=== PATIENT | female | born 1935 | race African-American/Black ===

== ENCOUNTER → 2017-02-10 12:39 | Emergency (ER) | payer MEDICARE ==
[~2017-02-10 12:39] MED LIST: Acetaminophen TAB* 325 MG PO ONE; HYDROcodone/ACETAMIN 5-325 MG* 1 TAB PO ONE; Lidocaine PATCH 5%* 1 PATCH TRANSDERM ONE; Lidocaine Patch REMOVE* 1 NOTE MISC PATCH OFF SCH; Morphine INJ* 2 MG/ML 1 ML CARPUJECT IV ONE; Morphine INJ* 4 MG/ML 1 ML CARPUJECT ONE; Ondansetron INJ* 2 MG/ML VIAL IV ONE
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
[2017-02-10 14:07] LABS: Hematocrit 36 % (35-47); Hemoglobin 11.6 g/dl (12.0-16.0); Mean Corpuscular HGB Conc 32 g/dl (31-36); Mean Corpuscular Hemoglobin 26 pg (27-31); Mean Corpuscular Volume 79 fL (80-97); Mean Platelet Volume 9 um3 (7.4-10.4); Red Blood Count 4.51 10^6/ul (4.0-5.4); Red Cell Distribution Width 15 % (10.5-15); White Blood Count 7.1 10^3/ul (3.5-10.8)
[2017-02-10 14:23] LABS: ALT 7 U/L (7-52); AST 16 U/L (13-39); Albumin 3.4 g/dL (3.2-5.2); Alkaline Phosphatase 29 U/L (34-104); Anion Gap 1 mmol/L (2-11); BUN/Creatinine Ratio 11.9 (8-20); Blood Urea Nitrogen 10 mg/dL (6-24); C Reactive Protein < 1.00 mg/L (< 5.00); CO2 Carbon Dioxide 31 mmol/L (22-32); Calcium 9.1 mg/dL (8.6-10.3); Chloride 107 mmol/L (101-111); EGFR African American 83.7 (>60); EGFR Non-African American 65.1 (>60); Globulin 2.9 g/dL (2-4); Glucose 87 mg/dL (70-100); Magnesium 2.2 mg/dL (1.9-2.7); Sodium 139 mmol/L (133-145); Total Protein 6.3 g/dL (6.4-8.9)
[2017-02-10 14:43] LABS: Amylase 69 U/L (29-103); Lipase 20 U/L (11.0-82.0)
[2017-02-10 16:32] LABS: Urine Bacteria Absent (Absent)
[2017-02-10 16:41] LABS: Urine Bilirubin Negative (Negative); Urine Glucose Negative (Negative); Urine Nitrite Negative (Negative)
[2017-02-10 22:22] VITALS: BP 158/50
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
== END | disposition home or self-care (01) ==
LOC: ED 12:39
DX: M54.5 Low back pain (principal); R00.1 Bradycardia, unspecified; G30.9 Alzheimer's disease, unspecified; F02.80 Dementia in other diseases classified elsewhere, unspecified severity, without behavioral disturbance, psychotic disturbance, mood disturbance, and anxiety; F05 Delirium due to known physiological condition
CPT/HCPCS: 36415; 80053; 81003; 81015; 82150; 83605; 83690; 83735; 85025; 86140; 87086; 93005; 96374; 96375; 99283; A9270-GY; J2270; J2405

== ENCOUNTER 2017-10-01 06:03 | Day surgery (SDC) | payer MEDICARE, MEDICAID ==
[~2017-10-01 06:03] MED LIST changes: -Acetaminophen TAB* 325 MG PO ONE; +Buffered Lidocaine 0.9% SYRIN* 5 ML/SYR SYRINGE INTRADERM ONE; -HYDROcodone/ACETAMIN 5-325 MG* 1 TAB PO ONE; -Lidocaine PATCH 5%* 1 PATCH TRANSDERM ONE; -Lidocaine Patch REMOVE* 1 NOTE MISC PATCH OFF SCH; -Morphine INJ* 2 MG/ML 1 ML CARPUJECT IV ONE; -Morphine INJ* 4 MG/ML 1 ML CARPUJECT ONE; -Ondansetron INJ* 2 MG/ML VIAL IV ONE
[2017-10-01 06:25] VITALS: BP 172/60
[2017-10-01] MEDS ORDERED: Atracurium* 10 MG/ML 10 ML VIAL ONE (06:25)
[2017-10-01] MEDS ORDERED: Rocuronium* 10 MG/ML VIAL ONE (06:25)
[2017-10-01] MEDS ORDERED: Succinylcholine* 20 MG/ML 10 ML VIAL ONE (06:31)
[2017-10-01] MEDS ORDERED: Gadoteridol* (CONTRAST) 279.3 MG/ML 10 ML IV ONE (06:31)
[2017-10-01] MEDS ORDERED: Naloxone* 0.4 MG/ML 1 ML VIAL IV PRN (08:35)
--- NOTE | 2017-10-01 09:10 | RAD ---
INDICATION: Pituitary adenoma. COMPARISON: Comparison is made with a prior MRI of the brain from December 04, [address] of the brain from March 01, 2015. TECHNIQUE: Sagittal T1, axial T1, T2, susceptibility, FLAIR and diffusion-weighted images were obtained. In addition a dynamic contrast enhanced study of the pituitary gland was obtained in the coronal plane with additional axial sagittal and coronal weighted images following intravenous contrast enhancement with 15 mL of ProHance nonionic contrast. FINDINGS: The ventricles, cisterns and sulci are prominent consistent with diffuse atrophy. There are focal areas of increased signal intensity on T2-weighted images present in the subcortical and periventricular white matter most consistent with moderate chronic small vessel ischemic changes. No areas of restricted diffusion are present. There is no evidence for infarct or hemorrhage. There is a large mass arising from the pituitary gland extending into the superior sellar cistern which is lobulated margins and enhances with contrast uniformly with contrast. This measures 3.3 x 2.6 x 1.7 cm in size and previously measured 2.5 x 2.5 x 1.7 cm in size. There is more superior extension of the mass into the suprasellar cistern on the right side compared with the prior study. There is compression and elevation of the optic chiasm as previously noted. There is invasion of both cavernous sinuses which appears similar to the prior exam right greater than left. The paranasal sinuses and mastoid air cells appear clear. 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
== END 2017-10-01 09:13 | disposition home or self-care (01) ==
LOC: OR 06:03
PROVIDERS: ATTEND Internal Medicine
DX: D35.2 Benign neoplasm of pituitary gland (principal); I10 Essential (primary) hypertension; E78.5 Hyperlipidemia, unspecified; I25.10 Atherosclerotic heart disease of native coronary artery without angina pectoris; E11.8 Type 2 diabetes mellitus with unspecified complications; G40.909 Epilepsy, unspecified, not intractable, without status epilepticus; R55 Syncope and collapse; I25.9 Chronic ischemic heart disease, unspecified; M79.1 Myalgia; R00.1 Bradycardia, unspecified; F03.91 Unspecified dementia, unspecified severity, with behavioral disturbance
CPT/HCPCS: 70553; A9579; J0330

== ENCOUNTER 2017-12-06 20:55 | Inpatient (IN) | payer MEDICARE, MEDICAID ==
[2017-12-06] MEDS ORDERED: NS 0.9% 1000 ML* 2,000 ML IV ONE (21:14)
[2017-12-06] MEDS ORDERED: Piperacillin/Tazobac ADVAN(*) 3.375 GM in NS 0.9% 100 ML* 100 ML IVPB ONE (21:19)
[2017-12-06] MEDS ORDERED: Morphine VIAL* 4 MG/ML VIAL (1 ml vial) IV ONE (21:19)
--- NOTE | 2017-12-06 21:32 | ED ---
Abdominal Pain/Female - HPI Summary HPI Summary: This is antonio Sousa documenting for attending physician Dev Kathleen M.D. Pt is a 82 y/o F brought in by EMS. She is a level 5 caveat as she has demetia, and HPI is gathered from granddaughter who was present. Pt was brought in today w/ c/o abdominal pain, black, tarry, and bloody diarrhea, HTN, and tachycardia. Pain onset was 2 days ago, diarrhea onset was 3 days ago. Granddaughter states Pt did not eat or drink much today or yesterday. She also notes Pt was tired and did not want to walk far. Pt states abdominal pain is in LLQ and pain is rated 4/10 on triage. - History of Current Complaint Chief Complaint: EDAbdPain Stated Complaint: ABD PAIN/BLOODY STOOL Time Seen by Provider: 12/06/17 21:03 Hx Obtained From: Patient - partially gathered but unreliable, Family/Animal Health Technician - granddaughter Hx From Patient Unobtainable Due To: Dementia - level 5 caveat Onset/Duration: Lasting Days - abdominal pain 2 days ago; diarrhea 3 days ago, Still Present Timing: Constant Severity Currently: Mild Pain Intensity: 4 Pain Scale Used: 0-10 Numeric - 4/10 Location: Discrete At: LLQ Radiates: No Associated Signs and Symptoms: Positive: Blood in Stool, Diarrhea - stool is described as black and tarry, Other: - fatigue, HTN, tachycardia Allergies/Adverse Reactions: Allergies Allergy/AdvReac Type Severity Reaction Status Date / Time metformin Allergy Mild Nausea And Verified 10/01/17 06:01 Vomiting propoxyphene [From Darvon] Allergy Unknown Unknown Verified 10/01/17 06:01 Reaction Details ramipril [From Altace] Allergy Unknown Unknown Verified 10/01/17 06:01 Reaction Details Home Medications: Home Medications Acetaminophen TAB* [Tylenol TAB*] 650 mg PO TID PRN 12/06/17 [History Confirmed 12/06/17] Aspirin EC TAB* [Ecotrin EC Low Dose 81 MG*] 81 mg PO DAILY 12/06/17 [History Confirmed 12/06/17] Atorvastatin* [Lipitor*] 10 mg PO EVERY OTHER DAY 12/06/17 [History Confirmed ] Bromocriptine TAB* [Parlodel TAB*] 2.5 mg PO BEDTIME 12/06/17 [History Confirmed 12/06/17] Calcium Carbonate/Vitamin D3 [Calcium Carbonate/Vitamin] 1 tab PO DAILY [History Confirmed 12/06/17] Clopidogrel TAB* [Plavix TAB*] 75 mg PO DAILY 12/06/17 [History Confirmed ] Donepezil TAB* [Aricept 5 MG TAB*] 10 mg PO DAILY 12/06/17 [History Confirmed ] Ferrous Sulfate TAB* 325 mg PO DAILY 12/06/17 [History Confirmed 12/06/17] HYDROcodone/ACETAMIN 5-325 MG* [[place] 5-325 TAB*] 0.5 tab PO Q6H PRN MDD 2 tablets 12/06/17 [History Confirmed 12/06/17] Levothyroxine TAB* [Synthroid TAB*] 50 mcg PO QAM 12/06/17 [History Confirmed ] Lidocaine [Aspercreme Lidocaine Max] 4 % EX DAILY 12/06/17 [History Confirmed ] Loperamide CAP* [Imodium CAP*] 2 mg PO Q4H PRN 12/06/17 [History Confirmed 12/06] Magnesium Oxide TAB* [MagOx 400 TAB*] 400 mg PO DAILY 12/06/17 [History Confirmed 12/06/17] Meclizine TAB* [Antivert 12.5 TAB*] 12.5 mg PO Q6H PRN 12/06/17 [History Confirmed 12/06/17] Saline NASAL SPRAY 0.65%* [Sodium Chloride 0.65% Nasal [place]*] 1 spray BOTH NARES Q2H PRN 12/06/17 [History Confirmed 12/06/17] PMH/Surg Hx/FS Hx/Imm Hx Endocrine/Hematology History: Reports: Hx Diabetes Cardiovascular History: Reports: Hx Coronary Artery Disease - Cardiac stent 2008 , Hx Hypertension, Hx Myocardial Infarction - plavix, ASA, statin, beta fior but latter was stopped 02/01/2017, Other Cardiovascular Problems/Disorders - 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, IN Denies: Hx Angina, Hx Pacemaker/ICD Respiratory History: Denies: Hx Asthma, Hx Chronic Obstructive Pulmonary Disease (COPD), Other Respiratory Problems/Disorders GI History: Reports: Hx Diverticulosis, Other GI Disorders - constipation, hernia repair History: Reports: Other Problems/Disorders - incontinence at times, Hx of UTI Denies: Hx Renal Disease Musculoskeletal History: Reports: Hx Arthritis - Arthritis in spine, Hx Back Problems - Lumbar DDD, Lt hip OA + subchondral cyst - takes meloxicam, Other Musculoskeletal History - Osteopenia Sensory History: Reports: Hx Contacts or Glasses, Hx Hearing Problem Denies: Hx Hearing Aid Opthamlomology History: Reports: Hx Contacts or Glasses Neurological History: Reports: Hx Dementia - Alzheimer's, Hx Peripheral Neuropathy - ???, Other Neuro Impairments/Disorders - Pituitary gland adenoma, Alzheimer's Disease,Dementia Denies: Hx Seizures Psychiatric History: Reports: Hx Anxiety, Hx Depression Denies: Hx Panic Disorder - Cancer History Cancer Type, Location and Year: pituitary tumor Hx Chemotherapy: No Hx Radiation Therapy: No - Surgical History Surgery Procedure, Year, and Place: colon resection 2007,hysterectomy 40 years ago ,r/t benign tumors,hernia repair 2008 Hx Anesthesia Reactions: No - Immunization History Date of Tetanus Vaccine: unknown Date of Influenza Vaccine: 2011 Infectious Disease History: No Infectious Disease History: Denies: Traveled Outside the [place] in Last 30 Days - Family History Known Family History: Positive: None, Diabetes - Social History Alcohol Use: None Hx Substance Use: No Substance Use Type: Reports: None Hx Tobacco Use: No Smoking Status (MU): Never Smoked Tobacco Review of Systems Positive: Fatigue - "did not want to walk far" Positive: Other - HTN, tachycardia Positive: Abdominal Pain - LLQ, Diarrhea - black, tarry stool, Other - blood in stool All Other Systems Reviewed And Are Negative: Yes Physical Exam - Summary Physical Exam Summary: Appearance: Well-appearing, Well-nourished, lying in bed comfortably Skin: Warm, dry, no obvious rash Eyes: sclera anicteric, no conjunctival pallor ENT: mucous membranes moist, pharynx appears normal Neck: Supple, nontender Respiratory: Clear to auscultation, no signs of respiratory distress Cardiovascular: Normal S1, S2. No murmurs. Normal distal pulses in tibial and radial bilaterally. Abdomen: LLQ quadrant tenderness and guarding, normal active bowel sounds present Musculoskeletal: Normal, Strength/ROM Intact Neurological: A&Ox3, awake and alert, mentation is normal, speech is fluent and appropriate Psychiatric: affect is normal, does not appear anxious or depressed Triage Information Reviewed: Yes Vital Signs On Initial Exam: Initial Vitals Temp Pulse Resp BP Pulse Ox 96.6 F 91 17 173/86 98 12/06/17 21:03 12/06/17 21:03 12/06/17 21:03 12/06/17 21:03 12/06/17 21:03 Vital Signs Reviewed: Yes Diagnostics - Vital Signs Vital Signs Temp Pulse Resp BP Pulse Ox 12/06/17 21:03 96.6 F 91 17 173/86 98 - Laboratory Result Diagrams: 12/09/17 05:17 12/09/17 05:17 Lab Statement: Any lab studies that have been ordered have been reviewed, and results considered in the medical decision making process. - CT CT abd/pel CT Interpretation: Positive (See Comments) CT Interpretation Completed By: Radiologist - Small bowel obstruction involving the proximal and mid small bowel. Transition zone is in the pelvis. No small bowel wall thickening or pneumatosis. Short transition zone. This is adjacent to an anterior abdominal wall repair with a mesh graft. Partial colectomy with distention of the rectum filled with fluid. No rectal wall thickening. Cholelithiasis. Cardiomegaly. Pericardial effusion located in the posterior aspect of the heart meausring 1.4 cm in width. This report was reviewed by ED physician. Re-Evaluation - Re-Evaluation First Eval Re-Evaluation Time: 22:00 Comment: Discussed tests and care of patient Second Eval Re-Evaluation Time: 00:30 Comment: Pt and granddaughter informed of admission of Pt Abdominal Pain Fem Course/Dx - Diagnoses Differential Diagnosis: Positive: Bowel Obstruction, Irritable Bowel Syndrome, Urinary Tract Infection. Negative: Abdominal Aortic Aneurysm, ACS Provider Diagnoses: Small bowel obstruction due to adhesions - Provider Notifications Discussed Care Of Patient With: Sharri Olguin Time Discussed With Above Provider: 00:25 Instructed by Provider To: Other - Dr. Olguin accepts for admission Discharge - Sign-Out/Discharge Documenting (check all that apply): Patient Departure - Discharge Plan Condition: Guarded Disposition: ADMITTED TO ORIENTAL MEDICAL - Billing Disposition and Condition Condition: GUARDED Disposition: Admitted to [facility]
[2017-12-06 21:59] LABS: ABS Basophils 0 10^3/ul (0-0.2); ABS Eosinophils 0 10^3/ul (0-0.6); ABS Monocytes 0.7 10^3/ul (0-0.8); ABS Neutrophils 7.6 10^3/ul (1.5-7.7); ABS Nucleated RBC 0 10^3/ul; Eosinophil % 0.2 % (0-6); Hematocrit 40 % (35-47); Hemoglobin 13.3 g/dl (12.0-16.0); Lymphocyte % 10.6 % (25-47); Mean Corpuscular HGB Conc 33 g/dl (31-36); Mean Corpuscular Hemoglobin 25 pg (27-31); Mean Corpuscular Volume 77 fL (80-97); Mean Platelet Volume 9.1 um3 (7.4-10.4); Nucleated Red Blood Cells % 0; Platelet Count 288 10^3/ul (150-450); Red Blood Count 5.29 10^6/ul (4.00-5.40); Red Cell Distribution Width 14 % (10.5-15); White Blood Count 9.3 10^3/ul (3.5-10.8)
[2017-12-06 22:05] LABS: EGFR Non-African American 59.9 (>60)
[2017-12-06] MEDS ORDERED: Iodixanol* (CONTRAST) 320 MG/ML 100 ML SDV IV ONE (22:11)
[2017-12-07] MEDS ORDERED: Benzocaine/Butamben/Tetracain* SPRAY TOPICAL ONE (00:52)
[2017-12-07] MEDS ORDERED: Al Hydrox/Mg Hydrox/Simet LIQ* 30 ML UDC PO PRN (01:39)
[2017-12-07] MEDS ORDERED: Ondansetron INJ* 2 MG/ML VIAL IV PRN (01:39)
[2017-12-07] MEDS ORDERED: Saline NASAL SPRAY 0.65%* BTL BOTH NARES PRN (01:42)
[2017-12-07] MEDS ORDERED: PROCHLORPERAZINE INJ 5 MG/ML 2 ML VIAL IV PRN (01:57)
--- NOTE | 2017-12-07 04:40 | HP ---
CC: [facility] HISTORY AND PHYSICAL: DATE OF ADMISSION: 12/07/17 TIME OF EVALUATION: 0100. PRIMARY CARE PHYSICIAN: [facility]. CHIEF COMPLAINT: Abdominal pain. HISTORY OF PRESENT ILLNESS: This is an 82-year-old female with a past medical history of moderate to severe dementia, who presented to the emergency room from [facility] with abdominal pain and bloody stools. The patient has moderate to severe dementia and is unable to provide a history. Her daughter is at the bedside, who states she started complaining of abdominal pain 2 days ago. This evening when they were changing her, they noted black stools, which they felt attributed to iron, but they also maroon-colored stools as well. In the setting of her abdominal pain and now bloody stools, they sent her to the emergency room for further evaluation. The daughter states she has had poor appetite over the past several days and her weight has been down 8 pounds over the past 2 months. In the emergency room, she began nausea and vomiting and, as mentioned, the abdominal pain is going on for the past 2 days. Otherwise, review of systems is limited due to the patient's dementia. In the emergency room, the patient had labs and imaging, was found to have a bowel obstruction. She had an NG tube placed. She was given Zosyn, a liter of fluid, morphine, and referred to the hospitalist service for further evaluation. PAST MEDICAL HISTORY: 1. Dementia, moderate to severe. She can recognize her granddaughter, but she is unable to express her needs. She is incontinent, but still ambulatory. 2. Diabetes. 3. History of coronary artery disease, status post IN and a stent. 4. Hypertension. 5. Hyperlipidemia. 6. History of diverticulosis, diverticulitis, status post partial colectomy. 7. Chronic low back pain. 8. Arthritis. 9. History of ventral hernia repair with mesh. 10. Pituitary mass. MEDICATIONS: 1. Loperamide as needed for constipation. 2. Tylenol for pain. 3. Meclizine 12.5 mg every 6 hours as needed for vertigo. 4. Nasal spray as needed for congestion. 5. Atorvastatin 10 mg p.o. daily. 6. Synthroid 50 mcg p.o. daily. 7. Ferrous sulfate 325 mg p.o. daily. 8. Aspercreme with lidocaine patch apply topically in the morning for chronic pain daily. 9. Plavix 75 mg p.o. daily. 10. Bromocriptine 2.5 mg at bedtime for pituitary tumor. 11. Hydrocodone/acetaminophen 5/325 mg 0.5 mg every 6 hours as needed for pain. 12. Aspirin 81 mg p.o. daily. 13. Magnesium oxide 400 mg p.o. daily. 14. Calcium and vitamin D3 one tab daily. 15. Aricept 10 mg p.o. daily. ALLERGIES: METFORMIN, PROPOXYPHENE, and RAMIPRIL. FAMILY HISTORY: Reviewed and noncontributory. SOCIAL HISTORY: The patient is . She has been at [facility] since February 2017. No history of tobacco, alcohol or illicit drug use. Her healthcare proxy is her daughter, Shivani Koch. REVIEW OF SYSTEMS: Limited due to the patient's dementia. PHYSICAL EXAMINATION GENERAL: No acute distress. Resting comfortably with her granddaughter at the bedside. VITAL SIGNS: Temp is 96.6, pulse rate 84, respiratory rate 19, oxygen saturation 99% on room air, blood pressure 168/72. HEENT: Head, normocephalic. Pupils equal and reactive. Oropharynx: Mucous membranes are moist. NECK: Supple, no lymphadenopathy. RESPIRATORY: Diminished breath sounds. No wheezes, rhonchi or rales. CARDIAC: Regular rate and rhythm. Soft systolic murmur heard throughout. ABDOMEN: Distant hypoactive bowel sounds. Moderate distention. Diffusely tender with guarding present. EXTREMITIES: Trace pretibial edema. +1 DPs. NEUROLOGIC: No gross focal neurologic deficits. Alert and oriented x2. Knows her name and where she is. LABORATORY DATA: White count 9.3, hemoglobin 13.3, hematocrit 40, platelets 288. Sodium 139, potassium 4.2, chloride 107, bicarb 22, BUN 15, creatinine 0.9 , glucose 153. CRP is 57. Urine shows trace ketones and squamous cells present. RADIOGRAPHIC DATA: Small bowel obstruction involving the proximal and mid small bowel transition noticed in the pelvis. No small bowel wall thickening or pneumatosis. Short transition adjacent to an anterior abdominal wall repair with mesh, partial colectomy with distention of the rectum filled with fluid. No rectal wall thickening, cholelithiasis, cardiomegaly, pericardial effusion located in the posterior aspect of the heart measuring 1.4 cm in width. ASSESSMENT: This is an 82-year-old female with a past medical history of a partial colectomy and ventral hernia repair, who presents to the emergency room with abdominal pain and concern for bloody stools, found to have a bowel obstruction. 1. Abdominal pain. Assessment: The patient's CAT scan is consistent with a small bowel obstruction , could be related to her ventral hernia with scar tissue or from her colectomy. Could also be concerning for a malignancy with her age and weight loss. Dr. Webber has been contacted. Plan: NG tube is getting placed right now. Admit her to short stay, n.p.o. with ice chips. Pain control and follow up with Surgery. 2. Concern for a GI bleed. Assessment: We will Hemoccult her stools. Her H and H is higher than it was back in February. We will hold off on any anticoagulation. CHRONIC MEDICAL PROBLEMS: 1. We will hold her medications in the setting of her bowel obstruction and she will need to be converted over to IV medication for her Synthroid if her symptoms persist and she remains n.p.o. and also her bromocriptine will need to be addressed for her pituitary mass. 2. FEN: As mentioned, n.p.o. and IV fluids. 3. DVT prophylaxis: The patient scores high risk. Placed her on SCDs. 4. Code status: The patient has confirmed with her daughter that she is a DNR/ DNI. MOLST form will be completed this evening. PATIENT TIME: Greater than 50 minutes were spent doing the history and physical , more than half the time was spent in direct patient contact. [id number]/[facility] #: [id number] LEMUEL
[2017-12-07] MEDS ORDERED: Ondansetron ODT TAB* 4 MG SL PRN (06:00)
[2017-12-07 07:03] LABS: Hematocrit 41 % (35-47); Hemoglobin 13.5 g/dl (12.0-16.0); Mean Corpuscular HGB Conc 33 g/dl (31-36); Mean Corpuscular Hemoglobin 25 pg (27-31); Mean Corpuscular Volume 77 fL (80-97); Mean Platelet Volume 9.3 um3 (7.4-10.4); Platelet Count 272 10^3/ul (150-450); Red Blood Count 5.32 10^6/ul (4.00-5.40); Red Cell Distribution Width 15 % (10.5-15); White Blood Count 8.3 10^3/ul (3.5-10.8)
[2017-12-07 07:15] LABS: EGFR Non-African American 63.2 (>60)
[2017-12-07 07:40] LABS: ABS Basophils 0 10^3/ul (0-0.2); ABS Eosinophils 0 10^3/ul (0-0.6); ABS Lymphocytes 0.3 10^3/ul (1.0-4.8); ABS Monocytes 0.3 10^3/ul (0-0.8); ABS Neutrophils 7.7 10^3/ul (1.5-7.7)
--- NOTE | 2017-12-07 07:41 | RAD ---
INDICATION: LEFT lower quadrant pain. Bloody diarrhea. History of diverticulitis. Previous colon resection. Post hysterectomy and hernia repair. COMPARISON: May 13, 2013 TECHNIQUE: Multidetector CT images were obtained from the lung bases to the ischial tuberosities with 80 mL Visipaque 320 IV and oral contrast. Multiplanar reformation. REPORT: Images through the inferior thorax are remarkable for cardiomegaly, small pericardial effusion, and mild dependent subsegmental atelectasis. Mildly distended gallbladder with stones measuring up to 1.5 cm diameter. Mild intrahepatic biliary dilatation. Negative for dilatation of the common bile duct or visualized calcified stone along the course of the common bile duct. Negative for focal liver lesions. Unremarkable pancreas. Negative for pancreatic duct dilatation. Unremarkable spleen. Post near complete colectomy with ileosigmoid anastomosis visualized at the RIGHT lower quadrant. Long segment dilatation of the small bowel bowel loops measuring up to 4 cm diameter. Air-fluid levels throughout the small bowel. There is short segment narrowing of the sigmoid colon at the RIGHT lower quadrant likely representing the transition point. While this may be transient a circumferential mucosal lesion is not excluded. Negative for associated perienteric inflammatory change. Alternatively the transition point may occur in the mid to distal small bowel adjacent to the anterior mesh hernia repair possibly secondary to an adhesion. Trace ascites. Negative for free air. Normal adrenal glands. Negative for focal renal lesions or hydronephrosis. Symmetric delayed nephrograms and pyelograms. Unremarkable nondilated ureters. Complete decompression of the urinary bladder. Post hysterectomy. Sharply circumscribed 2.6 cm water density lesion of the RIGHT ovary is only mildly increased in size compared with the 2013 exam. Negative for lymphadenopathy. Mild atherosclerotic plaque of normal diameter abdominal aorta. Gross complete decompression of the IVC consistent with low volume state. Negative for suspicious focal osseous lesions. IMPRESSION: #. Post near complete colectomy with long segment dilatation of the small bowel with air-fluid levels with transition point at the proximal residual sigmoid colon which may be secondary to a circumferential mucosal neoplastic lesion however this is not definitive as a peristaltic contraction could have a similar appearance. Alternatively the transition point may occur in the mid to distal small bowel adjacent to the anterior mesh hernia repair. #. Trace ascites. Negative for free air. Negative for significant hernias. #. Low volume state with decompressed IVC and symmetric delayed nephrograms and pyelograms. #. Cholelithiasis without additional significant CT abnormality of the gallbladder. #. Small pericardial effusion.
[2017-12-07 07:42] LABS: ABS Basophils 0 10^3/ul (0-0.2); Monocytes % 3 % (0-7)
--- NOTE | 2017-12-07 13:13 | CONS ---
CONSULTATION REPORT: DATE OF CONSULT: 12/07/17 PATIENT OF: Sharri Olguin DO. REFERRED TO: Gera Webber MD. CHIEF COMPLAINT: Abdominal pain. REASON FOR CONSULT: Abdominal pain and small bowel obstruction. HISTORY OF PRESENT ILLNESS: Mrs. Koch is an 82-year-old female who presented to the emergency room in the late evening hours of 12/06/17 from her residence at [facility] with complaints of abdominal pain and bloody stools. The patient is a very poor historian and I could not get much information from interviewing her; therefore most of the information given were provided by nursing notes and records from prior visits. The patient apparently presented to the emergency room with a 2- day history of vague abdominal pain. The patient described it as generalized pain pointing to the abdomen with no specific location. According to her daughter that was at bedside last night, the patient also has been having some black tarry stools as well as some maroon- colored stools as well. It is to be noted that the patient has been on iron supplement due to history of anemia, which might contribute to her dark stools in the past. She was evaluated in the emergency room and had laboratory workup that showed a slightly elevated lactate. She also had a CBC that showed normal white count, however showed high percentage of immature granulocytes and bands consistent with possible left shift. She had a CT scan of the abdomen and pelvis that revealed evidence of small bowel obstruction involving the proximal and mid small bowel with a transition zone in the pelvis. The patient had multiple surgeries in the past including colectomy as well as large ventral hernia repair with mesh according to her records. The patient denied any nausea or vomiting this morning; however, she had 1 episode of emesis in the ED and another 1 upon attempting insertion of NG tube. The patient did not tolerate the NG tube; however, she reports resolution of her nausea and vomiting after that episode last night. During her ED stay, she was given a dose of Zosyn and a liter of normal saline. The patient was admitted under hospitalist service and we were asked to see her for further evaluation of abdominal pain and small bowel obstruction. PAST MEDICAL HISTORY: Significant for moderate to severe dementia, for which the patient has been unable to express herself or give a reliable history. She also had a history of diabetes; coronary artery disease, status post SC with stent placement, for which she has been on Plavix. She also has a history of hypertension, hyperlipidemia, history of diverticulitis, chronic back pain, arthritis, and pituitary mass. PAST SURGICAL HISTORY: Significant for sigmoid colectomy and a ventral hernia repair with mesh. CURRENT MEDICATIONS: Her medications at home include: 1. Tylenol 650 mg p.o. t.i.d. as needed for fever or pain. 2. Aspirin 81 mg p.o. daily. 3. Lipitor 10 mg p.o. at bedtime. 4. Parlodel 2.5 mg p.o. at bedtime. 5. Calcium carbonate with vitamin D 1 tablet p.o. daily. 6. Plavix 75 mg p.o. daily. 7. Aricept 10 mg p.o. daily. 8. Ferrous sulfate 325 mg p.o. daily. 9. Drury 5/325 half a tablet p.o. q.6 hours as needed for pain. 10. Synthroid 50 mcg p.o. daily. 11. Lidocaine patch 4% daily. 12. Imodium 2 mg p.o. q.4 hours as needed for diarrhea. 13. Mag oxide 400 mg p.o. daily. 14. Meclizine 12.5 mg p.o. q.6 hours as needed for dizziness. 15. Saline nasal spray 0.65% 1 spray to both nostrils once daily. ALLERGIES: Multiple including METFORMIN, RAMIPRIL, and PROPOXYPHENE. FAMILY HISTORY: Reviewed and noncontributory. SOCIAL HISTORY: The patient is a . She is a resident of [facility] since February of 2017. She has no history of tobacco, alcohol, or illicit drug use. Her healthcare proxy is her daughter who I spoke to earlier this morning and her name is Nazanin. REVIEW OF SYSTEMS: Review of systems could not be done due to her severe dementia and unreliable history given. PHYSICAL EXAM: General: She is an elderly -[place] female, appears comfortable, and in no acute distress or discomfort at the time of consultation. Vital Signs: Most recent set of vitals with temperature of 98.3, pulse of 101, respirations of 16, and O2 sat of 99% on room air, and blood pressure of 157/67. HEENT: Head is normocephalic and atraumatic. Sclerae anicteric. PERRLA. EOMs intact. Oropharynx is pink and moist. Neck: Supple. Trachea midline. No cervical adenopathy or thyromegaly. Lungs: Clear to auscultation bilaterally. Heart: Regular rate and rhythm. Normal S1 and S2 without rubs or murmurs. Back with normal curvature. No CVA tenderness. Breast Exam: Deferred at this time. Abdomen: Soft and mildly distended. There is moderate tenderness noted to right paramedian area in right lower quadrant. There is a lower midline incision that is well-healed. I could not appreciate any ventral hernia on exam; however, it might need to be reevaluated for a possible recurrent hernia. There is no rebound tenderness, but there is slight guarding on exam as well. Bowel sounds were hypoactive throughout. No hepatospleno-megaly noted. Extremities: Without cyanosis, clubbing, or edema. Neurologic: She is awake, alert, and oriented to self only. She recognized daughter name, however does not provide any other information. Rectal Exam: Deferred at this time, awaiting heme-occult stool and C. diff results as well. DIAGNOSTIC STUDIES/LAB DATA: CBC repeated this morning with white count of 8000 , hemoglobin 13.5, hematocrit of 41, and platelets of 272, band neutrophils at 20%. Chemistry panel with sodium of 139, potassium 4.2, chloride 108, CO2 of 20 , BUN of 16, and creatinine of 0.86. Her glucose is 149, lactic acid was elevated last night at 2.1, repeated this morning with a value of 1.9. LFTs from last night within normal limits. CRP elevated at 57.5. ACCESSORY DIAGNOSTIC DATA: CT of the abdomen and pelvis was done last night and as mentioned above revealed evidence of small bowel obstruction with air fluid levels in a transition point at the proximal residual sigmoid colon, which could be secondary to circumferential mucosal neoplastic lesion or it could be related to peristalsis. There is also trace amount of ascites, cholelithiasis. IMPRESSION: An 82-year-old female who was admitted last night with 2 days' history of abdominal pain as well as questionable lower GI bleed. ASSESSMENT AND PLAN: I have discussed the case with Dr. Webber and at this time , we will await the results of her heme-occult stool as well as C. diff panel. I have added repeat lactic acid that came back normal, and we will check her CEA level as well. The patient could not give me any information about the last colonoscopy and I could not see any done in her record, but we cannot exclude the possibility of malignancy that could contribute to her bowel obstruction as well as lower GI bleed. We also discussed the possibility of intraabdominal adhesion given her multiple surgeries as well as a ventral hernia repair with mesh, which is the possible cause of her bowel obstruction at this time. We also reviewed the possibility of ischemic bowel given her history of coronary artery disease and she has been on Plavix since. I discussed all these options and differential diagnosis with her daughter and at this time, we will be conservative and we will treat her empirically with antibiotic if her lactic acid came back elevated. She might benefit from repeat NG tube placement if nausea and vomiting became a recurrent issue, however for the time being she seems to be comfortable and I will hold off NG placement at this time. Again, we will follow her up closely and Dr. Webber will evaluate the patient again later this morning, and we will update the medical team with any changes in her status. Thank you for this consultation. DERICK ESPOSITO [id number]/[facility] #: [id number] L[facility]UEL
--- NOTE | 2017-12-07 16:14 | PN ---
Subjective Date of Service: 12/07/17 Interval History: She denied hunger, thirst, nausea, pain but did not always seem to be answering the question I asked. Objective Active Medications: Acetaminophen (Tylenol Tab*) 650 mg PO Q4H PRN PRN Reason: FEVER/PAIN Al Hydrox/Mg Hydrox/Simethicone (Maalox Plus*) 30 ml PO Q6H PRN PRN Reason: INDIGESTION Potassium Chloride/Dextrose (D5w 1/2 Ns Kcl 20 Meq 1000 Ml*) 1,000 mls @ 125 mls/hr IV PER RATE BETTY Morphine Sulfate (Morphine Vial*) 2 mg IV Q4H PRN PRN Reason: PAIN Ondansetron HCl (Zofran Inj*) 4 mg IV Q4H PRN PRN Reason: NAUSEA/VOMITING Ondansetron HCl (Zofran Odt Tab*) 4 mg SL Q6H PRN PRN Reason: NAUSEA/VOMITING Prochlorperazine Edisylate (Compazine Inj*) 5 mg IV Q6H PRN PRN Reason: NAUSEA/VOMITING Sodium Chloride (Sodium Chloride 0.65% Nasal [place]*) 1 spray BOTH NARES Q2H PRN PRN Reason: CONGESTION Vital Signs - 8 hr 12/07/17 12:07 Temperature 98.4 F Pulse Rate 100 Respiratory 16 Rate Blood Pressure 150/66 (mmHg) O2 Sat by Pulse 95 Oximetry Oxygen Devices in Use Now: None Appearance: Alert, partly up in bed, fidgeting with her blankets constantly. Eyes: No Scleral Icterus Abdominal: NL Sounds; No Tenderness; No Distention, No Hepatosplenomegaly, - Extremities: No Edema, No Clubbing, Cyanosis, - Skin: No Rash or Ulcers, No Nodules or Sclerosis, - Neurological: NL Sensation - Diosrietned, not cooperative, refused to allow me to remove her sheets and blankets to examine her. Result Diagrams: 12/07/17 06:40 12/07/17 06:40 Microbiology and Other Data: Microbiology 12/07/17 11:12 Nasal Screen MRSA (PCR) - Final Nasal Mrsa Not Detected Assess/Plan/Problems-Billing Assessment: - Patient Problems (1) Small bowel obstruction Current Visit: Yes Status: Acute Code(s): K56.609 - UNSP INTESTNL OBST, UNSP TO PARTIAL VERSUS COMPLETE OBST SNOMED Code(s): 174701627 Comment: Advance to clear liquids. KUB 12/08. (2) Dementia Current Visit: No Status: Acute Code(s): F03.90 - UNSPECIFIED DEMENTIA WITHOUT BEHAVIORAL DISTURBANCE SNOMED Code(s): 14435272 Comment: Advanced dementia. I spoke to her daugher Mary on the phone-- she said her mother wouldn't know who she is. Palliative care consult requested.
[2017-12-07] MEDS ORDERED: fentaNYL* 50 MCG/ML 2 ML VIAL (100 MCG VIAL) ONE (18:57)
[2017-12-07] MEDS ORDERED: Midazolam* 1 MG/ML 10 ML VIAL (10 MG) ONE (18:58)
[2017-12-07] MEDS: D5W 1/2 NS KCl 20 Meq 1000 ML* 1,000 ML IV SCH (20:57)
--- NOTE | 2017-12-07 21:16 | CONS ---
GASTROENTEROLOGY CONSULT: DATE: 12/07/17 CONSULTING PHYSICIAN: Art West; Gera Webber REASON FOR CONSULTATION: Bowel obstruction with prior subtotal colectomy and unclear site- anal stenosis and question of anastomotic thickening near her bowel obstruction transition point on CT scan. HISTORY OF PRESENT ILLNESS: This 82-year-old woman with history of a subtotal colectomy 10 years ago for apparent diverticular bleeding, now lives in a senior care. She is profoundly demented and is seen alone but per records a couple of days ago she began complaining of abdominal distress. She was passing loose black stool. She was brought to the emergency room and CT scan showed dilated lower small bowel and possible thickening near where the ileo sigmoid anastomosis is. This area was also close to her ventral hernia repair with mesh. She has been admitted and has not had any fever or vomiting. With her loose stool, C diff is being ruled out, but no specimen has been yet supplied. At the senior care she is on a general diet. There is no history of recent gastrointestinal procedure. She had a cardiac workup in April 2013 that was remarkable for 90% mid LAD lesion, which was stented and she has been on Plavix ever since. She had good left ventricular function at that time. PAST MEDICAL HISTORY: 1. Status post subtotal colectomy - Dr Gonzalez 2. Coronary disease - drug-eluting stent in April 2013. 3. Dementia. 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 5. Chronic back pain. 6. History of ventral hernia repair with mesh. 7. Diabetes - not taking metformin. 8. Dyslipidemia. MEDICATIONS: List include: Magnesium oxide 400. Loperamide 2 q. 4 p.r.n. Hydrocodone 2 tablets q. 6 p.r.n. Ferrous sulfate 325. Clopidogrel 75 mg. Apart from those mentioned above relevant to the GI tract, she takes: Aspirin 81. Aricept 10. Atorvastatin 10. FAMILY HISTORY: No history of colon malignancy. 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 She has 5 children. Freda Morales, her daughter living in [place] since 1989, is her proxy. PHYSICAL EXAM: She is an elderly woman, not spontaneously conversing with no spontaneous complaint though when asked how her abdomen feels, she will say " not good." She is not vomiting. Her diet was advanced to clear liquids. She is anicteric. She has no adenopathy. Lungs are clear, but effort is poor. Heart sounds are regular. The abdomen is rounded, symmetric, with somewhat tinny sounding bowel sounds that are clearly present. She is tender diffusely to deep palpation though there really is not any rigidity. The tenderness is certainly more marked in the left mid and left lower quadrant. Per history, Dr. Webber could not do a rectal exam even with the fifth finger. Extremities show 1+ edema at the ankles. She moves all 4 extremities symmetrically. DIAGNOSTIC STUDIES/LAB DATA: X-ray review - thickening of her anastomotic area. Labs - on admission, hemoglobin 13.3, MCV 77, white count 8.3, platelets 272. Albumin 3.5. LFTs normal. CRP 57.5 (normal up to 80). IMPRESSION AND PLAN: This 82-year-old woman with a history of subtotal colectomy and also hemorrhoidectomy and prior hysterectomy, appears to have a probable bowel obstruction in the lower pelvis and around her anastomosis. She also has anal stenosis apparently and that may be the primary site. Would stop iron for now. A limited endoscopic exam will be helpful and will be limited to diagnostic scoping with possible small biopsies given her continued Plavix use. Forceful dilation is not indicated unless the risks are understood and Plavix interruption is to be considered. Specimens will be obtained for C. diff though the risk for that seems low. [id number]/[facility] #: [id number] [facility]
[2017-12-08] MEDS: D5W 1/2 NS KCl 20 Meq 1000 ML* 1,000 ML IV SCH ×3 (05:18→23:58)
[2017-12-08] MEDS: Levothyroxine TAB* 50 MCG TAB PO SCH (05:20)
[2017-12-08 06:48] LABS: ABS Basophils 0 10^3/ul (0-0.2); ABS Eosinophils 0 10^3/ul (0-0.6); ABS Lymphocytes 1.1 10^3/ul (1.0-4.8); ABS Monocytes 0.7 10^3/ul (0-0.8); ABS Neutrophils 5.9 10^3/ul (1.5-7.7); ABS Nucleated RBC 0 10^3/ul; Eosinophil % 0.6 % (0-6); Hematocrit 34 % (35-47); Lymphocyte % 14.3 % (25-47); Mean Corpuscular HGB Conc 33 g/dl (31-36); Mean Corpuscular Hemoglobin 25 pg (27-31); Mean Corpuscular Volume 77 fL (80-97); Mean Platelet Volume 9.5 um3 (7.4-10.4); Nucleated Red Blood Cells % 0; Platelet Count 226 10^3/ul (150-450); Red Blood Count 4.36 10^6/ul (4.00-5.40); Red Cell Distribution Width 15 % (10.5-15); White Blood Count 7.8 10^3/ul (3.5-10.8)
[2017-12-08] MEDS: Acetaminophen TAB* 325 MG PO PRN ×2 (08:27→11:58)
--- NOTE | 2017-12-08 10:26 | RAD ---
HISTORY: followup SBO COMPARISONS: CT dated December 06, 2017 VIEWS: Supine and left lateral decubitus views of the abdomen FINDINGS: BOWEL: Again noted is diffuse dilatation of the small bowel loops with multiple differential air-fluid levels , consistent with small bowel obstruction. Accounting for differences in technique, this is similar to the CT of December 06, 2017. CALCULI: There are no abnormal calculi. BONES AND SOFT TISSUES: Degenerative changes are noted. OTHER FINDINGS: The lung bases are clear. There is no subphrenic gas. A hernia repair mesh is noted. IMPRESSION: STABLE SMALL BOWEL OBSTRUCTION
[2017-12-08] MEDS ORDERED: metroNIDAZOLE TAB* 250 MG PO SCH (11:00)
--- NOTE | 2017-12-08 11:19 | PRO ---
DATE: 12/07/17 - ROOM #[id number] REFERRING PHYSICIAN: Art West MD * PROCEDURE: Decompressive colonoscopy with passage into neoterminal ileum for 50 cm. INDICATION: This 82-year-old woman presented with abdominal pain. She had a distended abdomen and the question of obstruction on her ileorectal anastomosis. Additionally, digital rectal exam was not possible even with the pinky by the business sales consultant. Informed consent was obtained from the patient's daughter living in [place] including a partial reversal of her DNR. ENDOSCOPIST: Dr. Mcmahan. MEDICATIONS: Midazolam 1.5 mg in 0.5 mg increments. FINDINGS: She is an elderly woman complaining of abdominal pressure and pain in the left lower quadrant. She was tender widely, but especially in left lower quadrant, though there was no rigidity. Perianal inspection was normal. Attempted digital rectal initially was resisted and the finger would not go in. Bending her hips and lining up with lubricants, the 5th finger could eventually be inserted and there was a rubbery resistance even up to the second knuckle. Fluid under pressure came out, possibly 200 cc; this was suctioned up. More fluid came out after the finger was removed. At this point, the pediatric colonoscope was lubricated and inserted with ease. The rectal mucosa was normal with an iron pill accumulated there. Mucosa continued to be normal in the upper rectum and then surgical scarring in the wall was seen at about 22 to 23 cm. One could turn and enter neoterminal ileum. This was run for about 50 cm. Pools of fluid were aspirated. The ileum appeared normal. On slow withdrawal from that maximal insertion, decompressing and exchanging carbon dioxide, no colitis or inflammation or erosions were seen. No tumor was seen. IMPRESSION: 1. Anal stenosis - this was functionally dilated by this procedure, but may require a formal dilation under anesthesia. 2. Anastomotic deformity - though patent and without signs of inflammation or bleeding. 3. Chronic microcytic anemia - her hemoglobin has built up and it no longer appears necessary to give any iron. [id number]/[facility] #: [id number] [facility]
--- NOTE | 2017-12-08 15:43 | PN ---
Subjective Date of Service: 12/08/17 Interval History: Patient unable to make her needs known. She only mentions pain when her abdomen is palpated, and looks comfortable all other times. Objective Active Medications: Acetaminophen (Tylenol Tab*) 650 mg PO Q4H PRN PRN Reason: FEVER/PAIN Last Admin: 12/08/17 11:58 Dose: 650 mg Al Hydrox/Mg Hydrox/Simethicone (Maalox Plus*) 30 ml PO Q6H PRN PRN Reason: INDIGESTION Potassium Chloride/Dextrose (D5w 1/2 Ns Kcl 20 Meq 1000 Ml*) 1,000 mls @ 125 mls/hr IV PER RATE COUNTS INCLUDE 234 BEDS AT THE [facility] Last Admin: 12/08/17 14:23 Dose: 125 mls/hr Levothyroxine Sodium (Synthroid Tab*) 50 mcg PO QAM@0600 COUNTS INCLUDE 234 BEDS AT THE [facility] Last Admin: 12/08/17 05:20 Dose: 50 mcg Morphine Sulfate (Morphine Vial*) 2 mg IV Q4H PRN PRN Reason: PAIN Ondansetron HCl (Zofran Inj*) 4 mg IV Q4H PRN PRN Reason: NAUSEA/VOMITING Ondansetron HCl (Zofran Odt Tab*) 4 mg SL Q6H PRN PRN Reason: NAUSEA/VOMITING Prochlorperazine Edisylate (Compazine Inj*) 5 mg IV Q6H PRN PRN Reason: NAUSEA/VOMITING Sodium Chloride (Sodium Chloride 0.65% Nasal [place]*) 1 spray BOTH NARES Q2H PRN PRN Reason: CONGESTION Vital Signs - 8 hr 12/08/17 12/08/17 08:00 11:14 Temperature 97.7 F Pulse Rate 87 Respiratory 16 16 Rate Blood Pressure 147/65 (mmHg) O2 Sat by Pulse 100 Oximetry Oxygen Devices in Use Now: None Appearance: Alert, in a chair. Neutral affect. Looks comfortable but somewhat restless. Eyes: No Scleral Icterus Abdominal: - - Distended, soft, diminished BS, somewhat tender. Skin: No Rash or Ulcers, No Nodules or Sclerosis, - Neurological: NL Sensation - Unable to state her correct age or present month. No tremor. Result Diagrams: 12/08/17 06:09 12/07/17 06:40 Microbiology and Other Data: Microbiology 12/07/17 11:12 Nasal Screen MRSA (PCR) - Final Nasal Mrsa Not Detected Assess/Plan/Problems-Billing Assessment: - Patient Problems (1) Small bowel obstruction Current Visit: Yes Status: Acute Code(s): K56.609 - UNSP INTESTNL OBST, UNSP TO PARTIAL VERSUS COMPLETE OBST SNOMED Code(s): 948626796 Comment: KUB 12/08 showed many loops gas-filled SB. NPO with ice chips diet ordered. I spoke to Dr. Cornejo who will review pt 12/08. (2) Dementia Current Visit: No Status: Acute Code(s): F03.90 - UNSPECIFIED DEMENTIA WITHOUT BEHAVIORAL DISTURBANCE SNOMED Code(s): 89195575 Comment: Advanced dementia. I spoke to her daugher Mary on the phone-- she said her mother wouldn't know who she is. Palliative care consult requested.
[2017-12-08] MEDS ORDERED: Morphine VIAL* 4 MG/ML VIAL (1 ml vial) IV PRN (16:14)
--- NOTE | 2017-12-08 20:46 | PN ---
Progress Note - Progress Note Date of Service: 12/08/17 SOAP: Subjective: Pt seen and examined earlier today. Still with abdo pain positive appetite s/p regid sig: stool , normal appearing ileum Objective: af vss uo : incontinent abdo: soft/ less distended, tender at LLQ no rebound labs noted Assessment: anal stricture Plan: PO diet serial anal dilation at hospital , and at my office will follow
[2017-12-09] MEDS: Levothyroxine TAB* 50 MCG TAB PO SCH (05:10)
[2017-12-09 06:10] LABS: Hematocrit 36 % (35-47); Hemoglobin 11.3 g/dl (12.0-16.0); Mean Corpuscular HGB Conc 32 g/dl (31-36); Mean Corpuscular Hemoglobin 25 pg (27-31); Mean Corpuscular Volume 78 fL (80-97); Red Blood Count 4.58 10^6/ul (4.00-5.40); Red Cell Distribution Width 15 % (10.5-15); White Blood Count 8.6 10^3/ul (3.5-10.8)
[2017-12-09 06:14] LABS: EGFR Non-African American 75.1 (>60)
[2017-12-09 06:41] LABS: ABS Basophils 0 10^3/ul (0-0.2); ABS Eosinophils 0.4 10^3/ul (0-0.6); ABS Lymphocytes 1.4 10^3/ul (1.0-4.8); ABS Monocytes 0.9 10^3/ul (0-0.8); ABS Neutrophils 5.9 10^3/ul (1.5-7.7); ABS Nucleated RBC 0 10^3/ul; Eosinophil % 4.3 % (0-6); Lymphocyte % 16.4 % (25-47); Mean Platelet Volume 9.4 um3 (7.4-10.4); Nucleated Red Blood Cells % 0; Platelet Count 215 10^3/ul (150-450)
--- NOTE | 2017-12-09 07:36 | PN ---
Subjective Date of Service: 12/09/17 Interval History: Patient offers no c/o. Objective Active Medications: Al Hydrox/Mg Hydrox/Simethicone (Maalox Plus*) 30 ml PO Q6H PRN PRN Reason: INDIGESTION Potassium Chloride/Dextrose (D5w 1/2 Ns Kcl 20 Meq 1000 Ml*) 1,000 mls @ 125 mls/hr IV PER RATE [facility] Last Admin: 12/08/17 23:58 Dose: 125 mls/hr Levothyroxine Sodium (Synthroid Tab*) 50 mcg PO QAM@0600 [facility] Last Admin: 12/09/17 05:10 Dose: Not Given Morphine Sulfate (Morphine Vial*) 2 mg IV Q4H PRN PRN Reason: PAIN Morphine Sulfate (Morphine Vial*) 1 mg IV Q2H PRN PRN Reason: PAIN - MILD Ondansetron HCl (Zofran Inj*) 4 mg IV Q4H PRN PRN Reason: NAUSEA/VOMITING Ondansetron HCl (Zofran Odt Tab*) 4 mg SL Q6H PRN PRN Reason: NAUSEA/VOMITING Prochlorperazine Edisylate (Compazine Inj*) 5 mg IV Q6H PRN PRN Reason: NAUSEA/VOMITING Sodium Chloride (Sodium Chloride 0.65% Nasal [place]*) 1 spray BOTH NARES Q2H PRN PRN Reason: CONGESTION Vital Signs - 8 hr 12/08/17 12/09/17 23:37 03:35 Temperature 98.6 F 98.5 F Pulse Rate 84 72 Respiratory 17 24 Rate Blood Pressure 157/58 140/52 (mmHg) O2 Sat by Pulse 100 100 Oximetry Oxygen Devices in Use Now: None Appearance: Alert, supine in bed. Neutral affect. Looks comfortable. Eyes: No Scleral Icterus Abdominal: - - Abd mildly distended, soft, not tender. Rushing BS. Extremities: No Edema, No Clubbing, Cyanosis, - Skin: No Rash or Ulcers, No Nodules or Sclerosis, - Neurological: NL Sensation - Cooperative. No tremor. HENDRICKS. Result Diagrams: 12/09/17 05:17 12/09/17 05:17 Microbiology and Other Data: Microbiology 12/07/17 11:12 Nasal Screen MRSA (PCR) - Final Nasal Mrsa Not Detected Assess/Plan/Problems-Billing Assessment: - Patient Problems (1) Small bowel obstruction Current Visit: Yes Status: Acute Code(s): K56.609 - UNSP INTESTNL OBST, UNSP TO PARTIAL VERSUS COMPLETE OBST SNOMED Code(s): 676781078 Comment: KUB 12/08 x 2 showed many loops gas-filled SB. Continue NPO with ice chips diet. Dr. Webber recommends serial anal dilatation for her anal stricture. BUN 14, K+ 4.1 on 12/09. Repeat KUB 12/10. (2) Dementia Current Visit: No Status: Acute Code(s): F03.90 - UNSPECIFIED DEMENTIA WITHOUT BEHAVIORAL DISTURBANCE SNOMED Code(s): 57114047 Comment: Advanced dementia. I spoke to her daugher Mary on the phone-- she said her mother wouldn't know who she is. Palliative care consult requested. (3) Pituitary mass Current Visit: No Status: Acute Comment: MRI 10/08 shows her macroadenoma has increased in size. Secondary hypothyroidism. Add on free T4 12/09 was above nl. D/C levothyroxine and repeat free T4 in a few days.
[2017-12-09] MEDS: D5W 1/2 NS KCl 20 Meq 1000 ML* 1,000 ML IV SCH ×2 (08:32→21:42)
--- NOTE | 2017-12-09 08:47 | RAD ---
HISTORY: r/o obstruction, small bowel obstruction follow-up COMPARISONS: December 08, 2017 VIEWS: Frontal and crosstable lateral views of the abdomen. FINDINGS: BOWEL: Again noted is diffuse distention and dilatation of the small bowel multiple differential air-fluid levels. This is similar to the previous examination. CALCULI: There are no abnormal calculi. BONES AND SOFT TISSUES: Degenerative changes are noted. OTHER FINDINGS: The lung bases are clear. There is no appreciable free intracranial gas. Evaluation is limited by positioning. A hernia repair mesh is noted. IMPRESSION: PERSISTENT SMALL BOWEL OBSTRUCTION
--- NOTE | 2017-12-09 11:07 | PN ---
Progress Note - Progress Note Date of Service: 12/09/17 SOAP: Subjective: Still having abdominal pain. Objective: Vital Signs - 8 hr 12/09/17 12/09/17 12/09/17 03:35 07:29 09:55 Temperature 98.5 F 99.0 F Pulse Rate 72 72 Respiratory 24 16 16 Rate Blood Pressure 140/52 131/53 (mmHg) O2 Sat by Pulse 100 100 Oximetry abdo- minimal tenderness elicited upon palpation Assessment: anal stricture Plan: -PO diet -serial anal dilation
--- NOTE | 2017-12-09 11:50 | PN ---
Progress Note - Progress Note Date of Service: 12/09/17 SOAP: Subjective: Pt seen and examined. sitting in chair. pain still a complaint Loose BMs continue Positive appetite; no nausea Objective: af vss Intake & Output 12/07/17 12/08/17 12/09/17 12/10/17 06:59 06:59 06:59 06:59 Intake Total 1100 1989 225 Output Total 50 0 Balance 1050 1989 225 Weight 140 lb Intake: IV Fluids 1100 1500 1994 D5W 1/2 NS 20 meq KCL 990 1994 LR 510 Oral 0 490 260 Output: Urine 0 0 Emesis 50 Other: Estimated Void Large Large Date of Last Bowel 12/07/17 12/08/17 12/09/17 Movement # Bowel Movements 1 1 1 Estimated Stool Amount Small Medium Medium # Voids 2 1 Intake & Output 12/08/17 12/09/17 12/09/17 22:59 06:59 14:59 Intake Total 30 1055 Balance 30 1055 abdo: soft/ distended, less tender rectal : stenotic; dilated today axr 12/08 c/w obstruction Assessment: Positive flatus and loose BM- unlikely SBO Pt overall improving Plan: repeat axr today if still obtruction pattern with no improvement, I would like ot get f/u CT scan today or tomorrow anal dilation
--- NOTE | 2017-12-09 14:15 | RAD ---
HISTORY: r/o obstruction COMPARISONS: December 08, 2012 VIEWS: Frontal supine and upright views of the abdomen. FINDINGS: BOWEL: Again noted are dilated loops of small bowel, similar to the previous examination. CALCULI: There are no abnormal calculi. BONES AND SOFT TISSUES: Degenerative changes are noted of the spine. OTHER FINDINGS: The lung bases are clear. There is no subphrenic gas. A hernia repair masses noted. IMPRESSION: STABLE DILATED LOOPS OF SMALL BOWEL CONSISTENT WITH SMALL BOWEL OBSTRUCTION
[2017-12-10] MEDS: D5W 1/2 NS KCl 20 Meq 1000 ML* 1,000 ML IV SCH ×2 (05:34→15:24)
[2017-12-10] MEDS ORDERED: Levothyroxine INJ* 100 MCG/5 ML VIAL IV SCH (06:00)
--- NOTE | 2017-12-10 08:43 | RAD ---
Indication: Small bowel obstruction. Constipation. Hernia repair. Comparison: December 09, 2017 Technique: Supine view of the abdomen. Report: Post near complete colectomy based on correlation with December 06, 2017 CT. Persistent long segment small bowel dilatation. Gas distention without visualized significant retained stool. Surgical clips from lower abdominal wall ventral hernia repair a few additional scattered surgical clips. Multiple surgical staple lines most consistent with bowel anastomoses throughout the abdomen. IMPRESSION: #. No significant interval change in findings of small bowel obstruction.
--- NOTE | 2017-12-10 09:08 | PN ---
Subjective Date of Service: 12/10/17 Interval History: Patient was seen and examined at bedside. She denies any complaints today. Tolerating sips of liquids. Very poor historian, no clear answers to any questions asked, but overall she tells me she is feeling better. Family History: Unchanged from Admission Social History: Unchanged from Admission Past Medical History: Unchanged from Admission Objective Active Medications: Al Hydrox/Mg Hydrox/Simethicone (Maalox Plus*) 30 ml PO Q6H PRN PRN Reason: INDIGESTION Potassium Chloride/Dextrose (D5w 1/2 Ns Kcl 20 Meq 1000 Ml*) 1,000 mls @ 125 mls/hr IV PER RATE BETTY Last Admin: 12/10/17 05:34 Dose: 125 mls/hr Morphine Sulfate (Morphine Vial*) 2 mg IV Q4H PRN PRN Reason: PAIN Morphine Sulfate (Morphine Vial*) 1 mg IV Q2H PRN PRN Reason: PAIN - MILD Ondansetron HCl (Zofran Inj*) 4 mg IV Q4H PRN PRN Reason: NAUSEA/VOMITING Ondansetron HCl (Zofran Odt Tab*) 4 mg SL Q6H PRN PRN Reason: NAUSEA/VOMITING Prochlorperazine Edisylate (Compazine Inj*) 5 mg IV Q6H PRN PRN Reason: NAUSEA/VOMITING Sodium Chloride (Sodium Chloride 0.65% Nasal [place]*) 1 spray BOTH NARES Q2H PRN PRN Reason: CONGESTION Vital Signs - 8 hr 12/10/17 12/10/17 12/10/17 04:49 07:31 08:00 Temperature 99.2 F Pulse Rate 66 59 Respiratory 18 18 Rate Blood Pressure 139/51 142/41 (mmHg) O2 Sat by Pulse 100 Oximetry Oxygen Devices in Use Now: None Appearance: Appears comfortable and in NAD Eyes: No Scleral Icterus, PERRLA Ears/Nose/Mouth/Throat: Clear Oropharnyx, Mucous Membranes Moist Neck: NL Appearance and Movements; NL JVP, Trachea Midline Respiratory: Symmetrical Chest Expansion and Respiratory Effort, Clear to Auscultation Cardiovascular: NL Sounds; No Murmurs; No JVD, RRR Abdominal: - - Abdomen soft and mildly distended. Moderate RLQ and periumbilical tenderness. Some guarding, but no regidity or rebound tenderness. Extremities: No Edema Skin: No Rash or Ulcers Neurological: - Nutrition: Taking PO's Result Diagrams: 12/09/17 05:17 12/09/17 05:17 Additional Lab and Data: . Microbiology and Other Data: Microbiology 12/07/17 11:12 Nasal Screen MRSA (PCR) - Final Nasal Mrsa Not Detected Diagnostic Imaging: . EKG Data: . Assess/Plan/Problems-Billing Assessment: An 82 y/o female with PMH multiple abdominal surgeries and advanced dementia, who was admitted with abdominal pain and SBO, with no significant clinical improvement. - Patient Problems (1) Small bowel obstruction Current Visit: Yes Status: Acute Comment: - KUB 12/08 x 2 showed many loops gas-filled SB. - Spoke with Dr. Webber, recommended trial of full liquids today. - He also recommended NPO past midnight for likely CT in AM, may have to take her to OR for surgery. - He spoke with daughter who agreed to surgcal plans if patient is not getting any better (2) CAD (coronary artery disease) Current Visit: No Status: Acute Comment: - Cont ASA, statin, BB (3) Dementia Current Visit: No Status: Acute Comment: - Advanced dementia. - I spoke to her daugher Mary on the phone--she said her mother wouldn't know who she is. - Palliative care consult requested. (4) DVT prophylaxis Current Visit: No Status: Acute Comment: - SCDs (5) DNR (do not resuscitate) Current Visit: Yes Status: Acute Status and Disposition: Inpatient. Anticipate discharge back to SNF once medically stable.
--- NOTE | 2017-12-10 13:08 | PN ---
Progress Note - Progress Note Date of Service: 12/10/17 SOAP: Subjective: Pt seen and examined. no flatus, pos Continued loose BM. No vomiting. Positive appetite Objective: af vss abdo: soft/ minimal distension/ less tender hypoactive BS AXR noted Assessment: pSBO vs SBO Plan: liquids for now, NPO tomorrow for likely CT scan with PO /IV contrast. Case discussed at length with daughter/HCP who would like possible intervention if necessary
[2017-12-11] MEDS: D5W 1/2 NS KCl 20 Meq 1000 ML* 1,000 ML IV SCH ×3 (00:03→17:21)
[2017-12-11 05:35] LABS: Hematocrit 36 % (35-47); Hemoglobin 11.8 g/dl (12.0-16.0); Mean Corpuscular HGB Conc 32 g/dl (31-36); Mean Corpuscular Hemoglobin 25 pg (27-31); Mean Corpuscular Volume 76 fL (80-97); Mean Platelet Volume 8.8 um3 (7.4-10.4); Platelet Count 247 10^3/ul (150-450); Red Blood Count 4.76 10^6/ul (4.00-5.40); Red Cell Distribution Width 15 % (10.5-15); White Blood Count 11.7 10^3/ul (3.5-10.8)
[2017-12-11 05:50] LABS: EGFR Non-African American 85.7 (>60)
[2017-12-11 05:52] LABS: ABS Basophils 0.1 10^3/ul (0-0.2); ABS Eosinophils 0.4 10^3/ul (0-0.6); ABS Lymphocytes 2.5 10^3/ul (1.0-4.8); ABS Monocytes 1.4 10^3/ul (0-0.8); ABS Neutrophils 7.3 10^3/ul (1.5-7.7); ABS Nucleated RBC 0 10^3/ul; Eosinophil % 3.5 % (0-6); Lymphocyte % 21.3 % (25-47); Nucleated Red Blood Cells % 0
[2017-12-11] MEDS: Morphine VIAL* 4 MG/ML VIAL (1 ml vial) IV PRN ×2 (08:03→20:04)
--- NOTE | 2017-12-11 08:11 | PN ---
Progress Note - Progress Note Date of Service: 12/11/17 SOAP: Subjective: Pt seen and examined. no flatus, continued abdo pain Continued loose BM. No vomiting. Positive appetite Objective: af vss abdo: soft/distended again/ tender hypoactive BS on L, nomal BS on R Assessment: pSBO vs SBO Plan: CT scan with PO /IV contrast. Case discussed at length with daughter/HCP who would like possible intervention if necessary
[2017-12-11] MEDS ORDERED: Iohexol 300* (CONTRAST) 10 ML SDV IV SCH (09:00)
[2017-12-11] MEDS ORDERED: Iodixanol* (CONTRAST) 320 MG/ML 100 ML SDV IV ONE (12:41)
--- NOTE | 2017-12-11 14:01 | RAD ---
INDICATION: Assess for bowel obstruction. Previous colon resection. Post hysterectomy and prior hernia repair. COMPARISON: December 10, 2017 radiographs and December 06, 2017 CT. TECHNIQUE: Multidetector CT images were obtained from the lung bases to the ischial tuberosities with 80 mL Visipaque 320 IV and oral contrast. Multiplanar reformation. REPORT: Cardiomegaly and coronary artery calcifications. Mild consolidation at the lung bases which may represent atelectasis or mild inflammatory infiltrate. Trace bilateral pleural effusions. Unremarkable liver. Calcified stones and biliary sludge at the normally distended gallbladder. Negative for biliary dilatation. Mildly atrophic pancreas without suspicious finding. Unremarkable spleen. Negative for CT abnormality of the stomach or duodenum. Dilatation of proximal greater than distal small bowel loops with gas and oral contrast. Dense oral contrast is limited due to the proximal to mid small bowel. Suggestion of transition point without associated conspicuous obstructing lesion at the LEFT lower quadrant most likely secondary to an adhesion. Post near complete colectomy. Unremarkable ileocolonic bowel anastomosis at the RIGHT abdomen. Negative for ascites or free air. Postsurgical change of previous infraumbilical ventral hernia repair. No significant recurrent hernia evident. Normal adrenal glands. Mildly atrophic kidneys with symmetric nephrograms and pyelograms. No suspicious renal lesions or hydronephrosis. Unremarkable nondilated ureters and partially distended urinary bladder. Post hysterectomy. Sharply circumscribed 2.7 cm diameter water density cyst of the RIGHT ovary without change. Unremarkable LEFT adnexal region. Negative for lymphadenopathy. Mild atherosclerotic plaque of normal diameter abdominal aorta and iliac arteries. Partially decompressed IVC. Negative for superficial or retroperitoneal hematoma. Negative for suspicious osseous lesions. IMPRESSION: #. Mild interval improvement in magnitude of small bowel dilatation compared with the December 06, 2017 exam consistent with partial resolution of small bowel obstruction versus ileus. #. Negative for ascites or free intraperitoneal air. #. New trace bilateral pleural effusions and mild basilar pulmonary consolidation which may represent atelectasis or pneumonia. #. Cholelithiasis.
--- NOTE | 2017-12-11 15:05 | PN ---
Subjective Date of Service: 12/11/17 Interval History: No overnight events. She thinks she feels better but does not remember why she is here or where she is. When I remind her, she says she does not remember having any abdominal pain, and she denies it now. Family History: Unchanged from Admission Social History: Unchanged from Admission Past Medical History: Unchanged from Admission Objective Active Medications: Al Hydrox/Mg Hydrox/Simethicone (Maalox Plus*) 30 ml PO Q6H PRN PRN Reason: INDIGESTION Potassium Chloride/Dextrose (D5w 1/2 Ns Kcl 20 Meq 1000 Ml*) 1,000 mls @ 125 mls/hr IV PER RATE BETTY Last Admin: 12/11/17 07:58 Dose: 125 mls/hr Morphine Sulfate (Morphine Vial*) 2 mg IV Q4H PRN PRN Reason: PAIN Last Admin: 12/11/17 08:03 Dose: 2 mg Morphine Sulfate (Morphine Vial*) 1 mg IV Q2H PRN PRN Reason: PAIN - MILD Last Admin: 12/10/17 12:23 Dose: 1 mg Ondansetron HCl (Zofran Inj*) 4 mg IV Q4H PRN PRN Reason: NAUSEA/VOMITING Ondansetron HCl (Zofran Odt Tab*) 4 mg SL Q6H PRN PRN Reason: NAUSEA/VOMITING Prochlorperazine Edisylate (Compazine Inj*) 5 mg IV Q6H PRN PRN Reason: NAUSEA/VOMITING Sodium Chloride (Sodium Chloride 0.65% Nasal [place]*) 1 spray BOTH NARES Q2H PRN PRN Reason: CONGESTION Vital Signs - 8 hr 12/11/17 12/11/17 12/11/17 07:19 08:00 08:03 Temperature 98.4 F Pulse Rate 73 Respiratory 20 18 18 Rate Blood Pressure 118/45 (mmHg) O2 Sat by Pulse 100 Oximetry 12/11/17 12/11/17 12/11/17 09:46 11:10 11:50 Temperature 98.9 F Pulse Rate 55 55 Respiratory 18 16 Rate Blood Pressure 110/68 (mmHg) O2 Sat by Pulse 83 100 Oximetry Oxygen Devices in Use Now: None Appearance: alert, confused, comfortable Eyes: No Scleral Icterus Ears/Nose/Mouth/Throat: NL Teeth, Lips, Gums Neck: NL Appearance and Movements; NL JVP Respiratory: Symmetrical Chest Expansion and Respiratory Effort, Clear to Auscultation Cardiovascular: NL Sounds; No Murmurs; No JVD, RRR Abdominal: NL Sounds; No Tenderness; No Distention, - - bowel sounds in all quadrants Lymphatic: No Cervical Adenopathy Extremities: No Edema Skin: No Rash or Ulcers Neurological: Alert and Oriented x 3 Result Diagrams: 12/11/17 05:10 12/11/17 05:09 Additional Lab and Data: . Microbiology and Other Data: Microbiology 12/07/17 11:12 Nasal Screen MRSA (PCR) - Final Nasal Mrsa Not Detected Diagnostic Imaging: . EKG Data: . Assess/Plan/Problems-Billing Assessment: An 82 y/o female with PMH multiple abdominal surgeries and advanced dementia, who was admitted with abdominal pain and SBO - Patient Problems (1) Small bowel obstruction Current Visit: Yes Status: Acute Code(s): K56.609 - UNSP INTESTNL OBST, UNSP TO PARTIAL VERSUS COMPLETE OBST SNOMED Code(s): 750323292 Comment: CT today shows some improvement advance to clear liquids Dr. Webber following (2) CAD (coronary artery disease) Current Visit: No Status: Acute Code(s): I25.10 - ATHSCL HEART DISEASE OF [place] CORONARY ARTERY W/O ANG PCTRS SNOMED Code(s): 09796638 Comment: ASA, statin, BB are on hold given her SBO. If she tolerates liquids today, they can be restarted tomorrow. 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 Noted. Status and Disposition: Inpatient. Anticipate discharge back to SNF once medically stable.
[2017-12-12] MEDS: D5W 1/2 NS KCl 20 Meq 1000 ML* 1,000 ML IV SCH ×3 (01:41→23:34)
[2017-12-12] MEDS: Morphine VIAL* 4 MG/ML VIAL (1 ml vial) IV PRN (06:51)
[2017-12-12] MEDS ORDERED: Ibuprofen TAB* 400 MG PO PRN (10:45)
--- NOTE | 2017-12-12 10:49 | PN ---
Progress Note - Progress Note Date of Service: 12/12/17 SOAP: Subjective: Pt seen and examined. continued abdo pain Continued loose BM. No vomiting. Positive appetite CT reviewed from yesterday. anal dilation performed yesterday and significant watery stool and flatus evacuated Objective: af vss abdo: soft/distended again/ non tender mixed BS Ct reviewed Assessment: pSBO - resolving Plan: advance diet home meds d/c morphine. iburofen for pain- I think some is d/t backpain
[2017-12-12] MEDS ORDERED: Lidocaine PATCH 5%* 1 PATCH ONE (12:58)
[2017-12-12] MEDS ORDERED: Acetaminophen TAB* 325 MG PO PRN (17:54)
[2017-12-12] MEDS ORDERED: Meclizine TAB* 12.5 MG PO PRN (17:54)
--- NOTE | 2017-12-12 17:57 | PN ---
Subjective Date of Service: 12/12/17 Interval History: Ms. Koch reports some pain with eating but she is an unreliable historian due to dementia. Nursing staff note that she seems to have tolerated oral intake well. Family History: Unchanged from Admission Social History: Unchanged from Admission Past Medical History: Unchanged from Admission Objective Active Medications: Al Hydrox/Mg Hydrox/Simethicone (Maalox Plus*) 30 ml PO Q6H PRN Potassium Chloride/Dextrose (D5w 1/2 Ns Kcl 20 Meq 1000 Ml*) 1,000 mls @ 125 mls/hr IV PER RATE BETTY Ibuprofen (Motrin Tab*) 400 mg PO Q6H PRN Lidocaine (Lidoderm 5% Patch*) 1 patch TRANSDERM DAILY BETTY Ondansetron HCl (Zofran Inj*) 4 mg IV Q4H PRN Ondansetron HCl (Zofran Odt Tab*) 4 mg SL Q6H PRN Pharmacy Profile Note (Lidocaine Patch Remove*) 1 note N/A 2100 BETTY Prochlorperazine Edisylate (Compazine Inj*) 5 mg IV Q6H PRN Sodium Chloride (Sodium Chloride 0.65% Nasal [place]*) 1 spray BOTH NARES Q2H PRN Vital Signs: Temp Pulse Resp BP Pulse Ox 98.8 F 71 18 121/40 100 12/12/17 16:16 12/12/17 16:16 12/12/17 16:16 12/12/17 16:16 12/12/17 16:16 Oxygen Devices in Use Now: None Appearance: Female sitting up in chair in NAD Eyes: No Scleral Icterus Ears/Nose/Mouth/Throat: Mucous Membranes Moist Neck: Trachea Midline Respiratory: Symmetrical Chest Expansion and Respiratory Effort, Clear to Auscultation Cardiovascular: NL Sounds; No Murmurs; No JVD, No Edema Abdominal: NL Sounds; No Tenderness; No Distention Lymphatic: No Cervical Adenopathy Extremities: No Edema Skin: No Rash or Ulcers Neurological: Alert and Oriented x 3, NL Muscle Strength and Tone Nutrition: Taking PO's Result Diagrams: 12/11/17 05:10 12/11/17 05:09 Assess/Plan/Problems-Billing Assessment: Ms. Koch is an 82 y/o female with PMH multiple abdominal surgeries and advanced dementia, who was admitted with abdominal pain and SBO - Patient Problems (1) Small bowel obstruction Comment: - Appreciate surgical consultation. - CT shows resolving SBO. - Advance diet as tolerated. (2) CAD (coronary artery disease) Comment: - Resume aspirin, atorvastatin, not on BB outpatient. (3) HLD (hyperlipidemia) Comment: - Cont statin (4) HTN (hypertension) Comment: - Normotensive. - Not on any home meds. 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 Noted. (7) DVT prophylaxis Comment: - SCDs (8) DNR (do not resuscitate) Comment: Status and Disposition: Inpatient. Anticipate discharge back to SNF once medically stable.
[2017-12-12] MEDS: Lidocaine Patch REMOVE* 1 NOTE MISC SCH (19:55)
--- NOTE | 2017-12-13 09:55 | RAD ---
HISTORY: r/o obstruction COMPARISONS: December 11, 2015 VIEWS: Supine and left lateral disc disease of the abdomen. FINDINGS: BOWEL: Again noted is distention and dilatation of small bowel loops diffusely with differential air-fluid levels. The caliber of the small bowel is stable from previous examinations. CALCULI: There are no abnormal calculi. BONES AND SOFT TISSUES: Degenerative changes are noted. OTHER FINDINGS: The lung bases are clear. There is no subphrenic gas. A hernia repair mesh is noted. IMPRESSION: STABLE DILATED LOOPS OF SMALL BOWEL CONSISTENT WITH SMALL BOWEL OBSTRUCTION.
--- NOTE | 2017-12-13 10:13 | PN ---
Subjective Date of Service: 12/13/17 Interval History: When asked if she has abdominal pain with palpation, Ms. Koch states, "It's getting there." She denies other complaint including chest pain, SOB, or nausea. She remains confused. Family History: Unchanged from Admission Social History: Unchanged from Admission Past Medical History: Unchanged from Admission Objective Active Medications: Acetaminophen (Tylenol Tab*) 650 mg PO TID PRN Al Hydrox/Mg Hydrox/Simethicone (Maalox Plus*) 30 ml PO Q6H PRN Aspirin (Aspirin Ec Tab*) 81 mg PO DAILY BETTY Atorvastatin Calcium (Lipitor*) 10 mg PO EVERY OTHER DAY [facility] Potassium Chloride/Dextrose (D5w 1/2 Ns Kcl 20 Meq 1000 Ml*) 1,000 mls @ 125 mls/hr IV PER RATE BETTY Ibuprofen (Motrin Tab*) 400 mg PO Q6H PRN Lidocaine (Lidoderm 5% Patch*) 1 patch TRANSDERM DAILY BETTY Magnesium Oxide (Magox 400 Tab*) 400 mg PO DAILY BETTY Meclizine HCl (Antivert Tab*) 12.5 mg PO Q6H PRN Ondansetron HCl (Zofran Inj*) 4 mg IV Q4H PRN Ondansetron HCl (Zofran Odt Tab*) 4 mg SL Q6H PRN Pharmacy Profile Note (Lidocaine Patch Remove*) 1 note N/A 2100 [facility] Prochlorperazine Edisylate (Compazine Inj*) 5 mg IV Q6H PRN Sodium Chloride (Sodium Chloride 0.65% Nasal [place]*) 1 spray BOTH NARES Q2H PRN Vital Signs: Temp Pulse Resp BP Pulse Ox 98.2 F 93 16 148/71 100 12/13/17 11:20 12/13/17 11:28 12/13/17 11:20 12/13/17 11:20 12/13/17 11:43 Oxygen Devices in Use Now: None Appearance: Elderly female lying in bed in NAD Eyes: No Scleral Icterus Ears/Nose/Mouth/Throat: Mucous Membranes Moist Neck: Trachea Midline Respiratory: Symmetrical Chest Expansion and Respiratory Effort, Clear to Auscultation Cardiovascular: NL Sounds; No Murmurs; No JVD, No Edema Abdominal: - - Soft, BS+, no rebound, guarding or reaction suspicious for pain with palpation Extremities: No Edema Skin: No Rash or Ulcers Neurological: Alert and Oriented x 3, NL Muscle Strength and Tone Nutrition: Taking PO's Result Diagrams: 12/11/17 05:10 12/11/17 05:09 Additional Lab and Data: . Microbiology and Other Data: Microbiology 12/07/17 11:12 Nasal Screen MRSA (PCR) - Final Nasal Mrsa Not Detected Diagnostic Imaging: . EKG Data: . Assess/Plan/Problems-Billing Assessment: Ms. Koch is an 82 y/o female with PMH multiple abdominal surgeries and advanced dementia, who was admitted with abdominal pain and SBO - Patient Problems (1) Small bowel obstruction Comment: - Appreciate surgical consultation. - CT shows resolving SBO. Xray today with read from radiology as SBO but surgery feels this is gaseous distension from anal stricture. - Advance diet as tolerated. - Anal stricture has been manually dilated while inpatient. Plan for suppositories every other day on discharge to maintain dilatation. (2) CAD (coronary artery disease) Comment: - Resume aspirin, atorvastatin, not on BB outpatient. (3) HLD (hyperlipidemia) Comment: - Cont statin (4) HTN (hypertension) Comment: - Normotensive. - Not on any home meds. 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 Noted. (7) DVT prophylaxis Comment: - SCDs (8) DNR (do not resuscitate) Comment: Status and Disposition: Inpatient. Anticipate discharge back to SNF once medically stable.
[2017-12-13] MEDS: D5W 1/2 NS KCl 20 Meq 1000 ML* 1,000 ML IV SCH ×2 (10:20→18:53)
[2017-12-13] MEDS: Aspirin EC TAB* 81 MG TAB.EC PO SCH (10:40)
[2017-12-13] MEDS: Lidocaine PATCH 5%* 1 PATCH TRANSDERM SCH (10:40)
[2017-12-13] MEDS: Magnesium Oxide TAB* 400 MG PO SCH (10:40)
--- NOTE | 2017-12-13 20:03 | PN ---
Progress Note - Progress Note Date of Service: 12/13/17 Note: Surgery progress: S: per nsg, not much po intake today; not cooperative w/ ambulation. Patient states she is having pain though is not able to give details. She has been having some loose stool, though at times it is just smearing of her pad. O: Vital Signs - 8 hr 12/13/17 12/13/17 12/13/17 15:19 16:21 19:32 Temperature 98.7 F Pulse Rate 102 99 87 Respiratory 20 18 Rate Blood Pressure 116/87 150/53 (mmHg) O2 Sat by Pulse 100 96 Oximetry 12/13/17 19:36 Temperature 100 F Pulse Rate Respiratory Rate Blood Pressure (mmHg) O2 Sat by Pulse Oximetry Intake and Output Last 24 Hours 12/11/17 12/12/17 12/13/17 12/14/17 06:59 06:59 06:59 06:59 Intake Total 2262 3851 3 1946 Output Total 0 0 200 Balance 2262 3851 1933 194 Intake: IV Fluids 1991 2921 954 1927 D5W 1/2 NS 20 meq KCL 1991 2921 954 1927 IVPB 979 D5W 1/2 NS 20 meq KCL 979 Oral 270 930 200 20 Output: Urine 0 0 0 Liquid Stool 200 Other: Estimated Void Medium Large Large Medium Date of Last Bowel 12/11/17 12/12/17 12/13/17 Movement # Bowel Movements 1 1 1 Estimated Stool Amount Large Medium Large Small # Voids 1 1 1 Abd: mild distension; +BS w/ some rushes; soft; no sig tenderness to palp; no palp masses; diffusely tympanitic Rectal: tight anus, barely admits my pinky finger to the middle phalanx before it is too painful for her; no significant return of stool or flatus. AXR today: reviewed by Dr. Webber; persistently dilated SB loops; no evidence of any remaining contrast from CT study A: pSBO (chronic?) P: will discuss w/ Dr. Webber; consider anal dilation under sedation
[2017-12-13] MEDS: Lidocaine Patch REMOVE* 1 NOTE MISC SCH (20:47)
[2017-12-14] MEDS: D5W 1/2 NS KCl 20 Meq 1000 ML* 1,000 ML IV SCH (02:55)
[2017-12-14] MEDS ORDERED: Atorvastatin* 10 MG TAB PO SCH (09:00)
[2017-12-14] MEDS: Magnesium Oxide TAB* 400 MG PO SCH (10:06)
[2017-12-14] MEDS: Aspirin EC TAB* 81 MG TAB.EC PO SCH (10:06)
[2017-12-14] MEDS: Lidocaine PATCH 5%* 1 PATCH TRANSDERM SCH (10:10)
--- NOTE | 2017-12-14 10:43 | PN ---
Subjective Date of Service: 12/14/17 Interval History: Ms. Koch denies complaint. She specifically denies chest pain, SOB, nausea, or abdominal pain. Family History: Unchanged from Admission Social History: Unchanged from Admission Past Medical History: Unchanged from Admission Objective Active Medications: Acetaminophen (Tylenol Tab*) 650 mg PO TID PRN Al Hydrox/Mg Hydrox/Simethicone (Maalox Plus*) 30 ml PO Q6H PRN Aspirin (Aspirin Ec Tab*) 81 mg PO DAILY [facility] Atorvastatin Calcium (Lipitor*) 10 mg PO EVERY OTHER DAY BETTY Bisacodyl (Dulcolax Supp*) 10 mg WA Q48H [facility] Potassium Chloride/Dextrose (D5w 1/2 Ns Kcl 20 Meq 1000 Ml*) 1,000 mls @ 125 mls/hr IV PER RATE BETTY Ibuprofen (Motrin Tab*) 400 mg PO Q6H PRN Lidocaine (Lidoderm 5% Patch*) 1 patch TRANSDERM DAILY [facility] Magnesium Oxide (Magox 400 Tab*) 400 mg PO DAILY BETTY Meclizine HCl (Antivert Tab*) 12.5 mg PO Q6H PRN Ondansetron HCl (Zofran Inj*) 4 mg IV Q4H PRN Ondansetron HCl (Zofran Odt Tab*) 4 mg SL Q6H PRN Pharmacy Profile Note (Lidocaine Patch Remove*) 1 note N/A 2100 [facility] Prochlorperazine Edisylate (Compazine Inj*) 5 mg IV Q6H PRN Sodium Chloride (Sodium Chloride 0.65% Nasal Perrin*) 1 spray BOTH NARES Q2H PRN Vital Signs: Temp Pulse Resp BP Pulse Ox 98.1 F 77 16 138/77 98 12/14/17 08:10 12/14/17 08:10 12/14/17 08:40 12/14/17 08:10 12/14/17 08:10 Oxygen Devices in Use Now: None Appearance: Female sitting up in chair in NAD Eyes: No Scleral Icterus Ears/Nose/Mouth/Throat: Mucous Membranes Moist Neck: Trachea Midline Respiratory: Symmetrical Chest Expansion and Respiratory Effort, Clear to Auscultation Cardiovascular: NL Sounds; No Murmurs; No JVD, No Edema Abdominal: NL Sounds; No Tenderness; No Distention Lymphatic: No Cervical Adenopathy Extremities: No Edema Skin: No Rash or Ulcers Neurological: NL Muscle Strength and Tone, - - Alert, oriented to self only Nutrition: Taking PO's Result Diagrams: 12/11/17 05:10 12/11/17 05:09 Additional Lab and Data: . Microbiology and Other Data: Microbiology 12/07/17 11:12 Nasal Screen MRSA (PCR) - Final Nasal Mrsa Not Detected Diagnostic Imaging: . EKG Data: . Assess/Plan/Problems-Billing Assessment: Ms. Koch is an 82 y/o female with PMH multiple abdominal surgeries and advanced dementia, who was admitted with abdominal pain and SBO - Patient Problems (1) Small bowel obstruction Comment: - Appreciate surgical consultation. - CT shows resolving SBO. Xray today with read from radiology as SBO but surgery feels this is gaseous distension from anal stricture only. - Advance diet as tolerated. - Anal stricture has been manually dilated while inpatient. Plan for suppositories every other day on discharge to maintain dilatation with outpatient follow up with surgery as needed (appointment scheduled). (2) CAD (coronary artery disease) Comment: - Resume aspirin, atorvastatin, not on BB outpatient. (3) HLD (hyperlipidemia) Comment: - Cont statin (4) HTN (hypertension) Comment: - Normotensive. - Not on any home meds. 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 Noted. (7) DVT prophylaxis Comment: - SCDs (8) DNR (do not resuscitate) Comment: Status and Disposition: Inpatient. [facility]
[2017-12-14] MEDS: Bisacodyl SUPP* 10 MG SUPP PR SCH ×2 (11:02→11:50)
--- NOTE | 2017-12-14 11:50 | DS ---
CC: [facility] * Please note, this discharge summary will serve as the history and physical for admission to [facility]. DATE OF ADMISSION: 12/07/2017. DATE OF DISCHARGE: 12/14/2017. ATTENDING PROVIDER: HOWIE SORENSON MD * (DICTATED BY SUSANNAH BARTHOLOMEW NP) PRIMARY DIAGNOSES: 1. Small bowel obstruction, resolved. 2. Anal stricture. SECONDARY DIAGNOSES: 1. Moderate to severe dementia. 2. Type 2 diabetes, noninsulin dependent. 3. History of coronary artery disease, status post SC and stent. 4. Hypertension. 5. Hyperlipidemia. 6. Diverticulosis with diverticulitis, status post partial colectomy. 7. Chronic low back pain. 8. Arthritis. 9. History of ventral hernia repair with mesh. 10. Pituitary mass. MEDICATIONS AT THE TIME OF DISCHARGE: 1. Magnesium Oxide 400 mg p.o. daily. 2. Hydrocodone with acetaminophen 5/325 half-a-tab p.o. q.6 hours prn pain. 3. Calcium Carbonate with vitamin D3 one tab p.o. daily. 4. Aspirin 81 mg p.o. daily. 5. Clopidogrel 75 mg p.o. daily. 6. Bromocriptine 2.5 mg p.o. at bedtime. 7. Lidocaine 4% cream as needed. 8. Atorvastatin 10 mg p.o. every other day. 9. Levothyroxine 50 mcg p.o. q.a.m. 10. Saline nasal spray 0.65% one spray both nares q.4 hours prn. 11. Meclizine 12.5 mg p.o. q.6 hours prn. 12. Tylenol 650 mg p.o. t.i.d. prn. 13. Ondansetron 4 mg sublingually q.6 hours prn. 14. Dulcolax suppository 10 mg per rectum q.48 hours. HOSPITAL COURSE: Ms. Koch is an 82-year-old female with a past medical history as outlined above who presented to the emergency room on 12/07/2017 with concern for abdominal pain. Please see the dictated history and physical from Sharri Olguin DO for complete details. In brief, the patient has moderate to severe dementia and was unable to provide a history of her illness, but there was report from the facility that the patient had evidence of abdominal pain and had bloody stools. In the emergency room, she had labs which showed a normal hemoglobin of 13.3, her CRP was 57.5. She went for an abdomen and pelvis CT which was read as follows: "Post near complete colectomy with long segment dilatation of the small bowel with air-fluid levels with transition point at the proximal residual sigmoid colon which may be secondary to a circumferential mucosal neoplastic lesion; however, this is not definitive as a peristaltic contraction could have a similar appearance. Alternatively the transition point may occur in the mid to distal small bowel adjacent to the anterior mesh hernia repair." The patient was seen in consultation by Surgical Services for this question of a bowel obstruction. Discussion between the Surgical Services team and the patient's daughter, who is the healthcare proxy, led to plan for conservative treatment only given her history of advanced dementia. The patient was also seen in consultation by Dr. Mcmahan from Gastroenterology. He makes note of the fact that the patient had a prior hemorrhoidectomy and that she had anal stenosis. He recommended a limited endoscopic exam which was performed on 12/07/2017. He found anal stenosis that was dilated as part of the endoscopic procedure and an anastomotic deformity without signs of inflammation or bleeding. Ms. Koch has made a slow recovery. She has had multiple bedside anal dilatations for her anal stricture with good improvement and passage of liquid stool. She has had repeat x-rays and abdominal/pelvis CT's, most recent one being 12/13/2017 which continued to show some dilatation of the small bowel, but surgical team believes this is more reflection of some gaseous distention related to her anal stricture than persistent small bowel obstruction. Ms. Koch is doing well today. She denies abdominal pain. She is tolerating oral intake, although her appetite is limited. She is having multiple stools per day. Recommendation from Surgical team is that the patient be discharged back to [facility] and that she can have suppositories given every other day to assist with continued digital dilatation of the anal stricture and passage of soft stool. The patient also has an appointment set up with Dr. Webber's office and that is noted in the discharge paperwork. Ms. Koch's family is considering transitioning over to Hospice once at [facility]. This can be reviewed with them there and I have encouraged the family to do so based on their wishes. DISPOSITION: To [facility]. DIET: Regular. ACTIVITY: As tolerated. FOLLOW-UP PLANS: Please follow-up with Dr. Webber. An appointment has been scheduled over the next week. Please follow-up routinely per the providers at [facility]. Approximately 60 minutes were spent in the discharge of this patient, more than half that time was spent with the patient at the bedside reviewing the events leading up to this hospitalization and during this hospitalization with her and her daughter, performing the physical examination, and reviewing the plan of care. SUSANNAH BARTHOLOMEW, ADOLFO [id number]/CPS #: [id number] LEMUEL
[2017-12-14 14:03] VITALS: BP 123/69
== END 2017-12-14 14:00 | DRG 345 ==
LOC: ED 20:55 → SSU 12-07 01:39
PROVIDERS: ADMIT Pediatrics; ATTEND Internal Medicine
PROC: 0D9E8ZZ Drainage of Large Intestine, Via Natural or Artificial Opening Endoscopic (ICD-10-PCS; principal; 2017-12-07)
DX: K62.4 Stenosis of anus and rectum (principal); K56.609 Unspecified intestinal obstruction, unspecified as to partial versus complete obstruction; F03.90 Unspecified dementia, unspecified severity, without behavioral disturbance, psychotic disturbance, mood disturbance, and anxiety; E11.9 Type 2 diabetes mellitus without complications; D35.2 Benign neoplasm of pituitary gland; I25.10 Atherosclerotic heart disease of native coronary artery without angina pectoris; I11.9 Hypertensive heart disease without heart failure; Z66 Do not resuscitate; E78.5 Hyperlipidemia, unspecified; M54.5 Low back pain; M19.90 Unspecified osteoarthritis, unspecified site; Z95.5 Presence of coronary angioplasty implant and graft; I25.2 Old myocardial infarction; Z79.1 Long term (current) use of non-steroidal anti-inflammatories (NSAID); Z79.02 Long term (current) use of antithrombotics/antiplatelets; Z79.82 Long term (current) use of aspirin; Z79.899 Other long term (current) drug therapy; Z88.8 Allergy status to other drugs, medicaments and biological substances; Z90.49 Acquired absence of other specified parts of digestive tract
CPT/HCPCS: 36415; 74018; 74019; 74177; 80048; 80053; 82272; 82378; 83605; 83630; 83690; 84439; 84443; 85025; 86140; 86850; 86900; 86901; 87040; 87493; 87641; 99156; 99283; A9270-GY; J2250; J2270; J2405; J2543; J3010; Q9967

== ENCOUNTER 2017-12-27 18:51 | Emergency (ER) | payer MEDICARE ==
--- OUTSIDE RECORDS SUMMARY | 2017-12-27 19:36 | XMS REPORT ---
:1935 External Reference #:[id number] Author Organization [facility] Address [address] [place] [address] [place] [address] Phone [phone] Care Team Providers Name Role Phone Samara Galvan DO Primary Care Physician Unavailable Payers Type Date Identification Numbers Payment Provider Subscriber Medicare Primary Policy Number: [id number] Medicare Landon Koch PayID: [id number] [address] [place] [address] [facility] Expires: 2013 Policy Number: [id number] Medicaid Landon Koch Group Name: 1 1 [address] PayID: [id number] [place] [address] [facility] Policy Number: [id number] Medicaid Landon Koch Group Name: 1 1 [address] PayID: [id number] [place] [address] Problems Date Description Provider Status Onset: 09/14/2017 Unspecified dementia with Samara Galvan D.O. Active behavioral disturbance Onset: 09/14/2017 Benign neoplasm of pituitary Samara Galvan D.O. Active gland and craniopharyngeal duct Onset: 09/14/2017 Hyperlipidemia Samara Galvan D.O. Active Onset: 09/14/2017 Athscl heart disease of n[place]ki Samara Galvan D.O. Active coronary artery w/o ang pctrs Onset: 09/14/2017 Unspecified dementia without Samara Galvan D.O. Active behavioral disturbance Onset: 09/14/2017 Wandering in diseases classified Ganesh Guardado M.D. Active elsewhere Onset: 09/14/2017 Alzheimer's disease Humberto Castro II, M.D. Active Onset: 09/14/2017 Type 2 diabetes mellitus Humberto Castro II, M.D. Active Onset: 09/14/2017 Dementia Humberto Castro II, M.D. Active Onset: 09/14/2017 Essential hypertension Humberto Castro II, M.D. Active Onset: 09/14/2017 Electrocardiogram abnormal Michi Ventura M.D. Active Onset: 09/14/2017 Myalgia Johnny Pires MD Active Onset: 09/14/2017 Bradycardia, unspecified Johnny Pires MD Active Onset: 09/14/2017 Acute subendocardial infarction Dorothy Matos N.PSoto Active Onset: 09/14/2017 Acute posthemorrhagic anemia Dorothy Matos N.P. Active Onset: 09/14/2017 Seizure Dorothy Matos N.PSoto Active Onset: 09/14/2017 Essential hypertension Dorothy Matos N.P. Active Onset: 09/14/2017 Chest pain Roxanne Philippe D.O. Active Onset: 09/14/2017 Electrocardiogram abnormal Rxoanne Philippe D.O. Active Onset: 09/14/2017 Acute myocardial infarction Delmar Borrego M.D. Active Onset: 09/14/2017 Chronic ischemic heart disease Delmar Borrego M.D. Active Onset: 09/14/2017 Type 2 diabetes mellitus Samara Galvan D.O. Active Onset: 09/14/2017 Syncope and collapse Sina Elias M.D. Active Onset: 09/14/2017 Angina pectoris Roxanne Philippe D.O. Active Onset: 09/14/2017 Clinical finding Alex Duvall M.D., Active FACC, FASNC Onset: 09/14/2017 Localization-related epilepsy Samara Galvan D.O. Active Onset: 09/14/2017 Disorder of anterior pituitary Zeeshan Altman M.D. Active Onset: 09/14/2017 Dyspnea Delmar Borrego M.D. Active Onset: 09/14/2017 Shoulder joint pain Samara Galvan D.O. Active Social History Type Date Description Comments Marital Status Lives With 2017 Assisted living [facility] Smoking Patient has never smoked Exercise Type/Frequency Exercises rarely Allergies, Adverse Reactions, Alerts Date Description Reaction Status Severity Comments 09/14/2017 Metformin active unknown 09/14/2017 Propoxyphene active unknown 09/14/2017 Ramipril active unknown Medications Medication Date Status Form Strength Qnty SIG Indications Ordering Provider Aricept 09/14/ Active Tablets 10mg 30tabs take one F03.91 Maday 2018 tablet by Violeta, mouth at RN BABY bedtime Aspercreme 09/14/ Active Patches 4% 90unit apply R52 Maday Lidocaine 2018 s daily to tom Mcdaniel Q Am RN BABY remove in PM Aspirin 09/14/ Active Tablets DR 81mg 1 by mouth Maday 2018 every day ADOLFO Mcdaniel Atorvastatin 09/14/ Active Tablets 10mg 90tabs 1 by mouth E78.5 Maday Calcium 2018 every day ADOLFO Mcdaniel Bromocriptine 09/14/ Active Tablets 2.5mg 1 tab PO Q D35.2 Maday Mesylate 2018 hs ADOLFO Mcdaniel Calcium 09/14/ Active Tablets 600-400mg- 1 tab PO Maday Carb-Cholecalci 2018 Unit qd marielle Mcdaniel NP Clopidogrel 09/14/ Active Tablets 75mg 30tabs 1 by mouth I21.A9 Maday Bisulfate 2018 every day ADOLFO Mcdaniel Loperamide HCL 09/14/ Active Capsules 2mg 100cap take one Maday 2017 s capsule by radha Mcdaniel RN BABY every 8 hours as needed Magnesium Oxide 09/14/ Active Capsules 400mg 60caps 1 by mouth Maday -MG Supplement 2018 every day ADOLFO Mcdaniel Meclizine HCL 09/14/ Active Tablets 12.5mg 1 Q6hrs Maday 2018 prn romana Mcdanieltigo ADOLFO Levothyroxine / Active Tablets 50mcg 1 by mouth Unknown Sodium 0000 every day Tylenol 8 Hour 00/ Active Tablets ER 650mg 1 tab Unknown 0000 every 8 hours as needed for pain Hydrocodone-Dagoberto 09/14/ Hx Tablets 5-325mg 30tabs give 0.5 Maday taminophen 2018 - tab PO Q 6 Violeta, 0802/ hrs prn ADOLFO 2018 Lidocaine / Hx Cream 4% apply to Unknown 0000 affected areas 3 or 4 times daily as directed Vital Signs Date Vital Result Comment 12/23/2017 Heart Rate 66 /min BP Systolic Sitting 128 mmHg BP Diastolic Sitting 82 mmHg Respiratory Rate 18 /min Body Temperature 98.0 F 12/01/2017 Weight 140.38 lb 09/29/2017 Heart Rate 70 /min BP Systolic Sitting 130 mmHg BP Diastolic Sitting 74 mmHg Respiratory Rate 16 /min Body Temperature 98.0 F O2 % BldC Oximetry 98 % Results Description No Information Procedures Date CPT Code Description Status 03/18/2017 35208 EKG, Interpretation Only Completed 05/12/2013 46332 EKG, Interpretation Only Completed 05/11/2013 06328 EEG Recording Awake & Drowsy Completed 05/11/2013 21510 ECHO Transthorasic Realtime 2D W Doppler & Color Flow Completed Hosp 05/11/2013 54878 EKG, Interpretation Only Completed 05/10/2013 56497 Cath PLMT&NJX L Ventriculog Img S&I Completed 05/10/2013 07483 EKG, Interpretation Only Completed 05/10/2013 82334 EKG, Interpretation Only Completed 05/10/2013 02875 Revascularization Acute Total/Subtotal Occlusion Completed 05/09/2013 14449 EKG, Interpretation Only Completed 05/08/2013 13918 Treadmill Interp/Report Only Completed 05/08/2013 88716 Stress Test Supervsn W/Out I/R Completed 05/08/2013 35750 EKG, Interpretation Only Completed Encounters Type Date Location Provider CPT E/M Dx Office Visit 12/14/2017 [facility],cesia Alvarez, N.P. 49182 K56.609 11:57a Hospitalists F03.90 Office Visit 12/13/2017 11:56a [facility],cesia Alvarez N.P. 43767 K56.609 Hospitalists F03.90 Office Visit 12/13/2017 7:00a [facility] Vishnu Mckenzie, [address] [facility] [place] R19.7 Office Visit 12/12/2017 7:00a [facility] Gera Webber, 29642 K56.609 Andreea MAR Office Visit 12/12/2017 11:55a [facility],cesia Alvarez N.P. 55247 K56.609 Hospitalists F03.90 Office Visit 12/11/2017 11:54a [facility],cesia Machuca, 55064 K56.609 Hospitalists DO F03.90 D35.2 Office Visit 12/11/2017 7:00a [facility] Gera Webber, 67786 K56.609 Andreea MAR Office Visit 12/10/2017 11:54a [facility]pc Kayleigh Lawrencez, 75431 K56.609 Hospitalists [place] F03.90 Office Visit 12/10/2017 7:00a [facility] Gera Webber, 77727 K56.609 Andreea MAR Office Visit 12/09/2017 11:54a [facility] Rufus Gordon, 94110 K56.609 Hospitalists M.Eber F03.90 Office Visit 12/09/2017 7:00a [facility] [place] [address] R10.9 Rewriter R19.7 Office Visit 12/08/2017 11:53a [facility] Rufus Gordon, 71461 K56.609 Hospitalists MShaggy F03.90 Office Visit 12/08/2017 7:00a [facility]era Webber, 18314 K62.4 Andreea MAR Office Visit 12/07/2017 11:53a [facility] [address] K56.609 Hospitalists K92.1 Office Visit 12/01/2017 9:15a [place] [address] F03.91 D35.2 I25.10 E78.5 Office Visit 11/16/2017 8:15a [place] [address] F03.91 D35.2 E11.9 I10 Office Visit 11/03/2017 8:00a [facility] Maday Mcdaniel, ADOLFO 41881 F03.91 D35.2 R41.0 Office Visit 10/18/2017 8:00a [place] [address] J06.9 Office Visit 09/29/2017 8:30a [place] [address] D35.2 F03.91 E78.5 I25.10 Office Visit 09/09/2017 10:15a [facility] Samara Cole, D.O. 90702 F03.91 D35.2 E78.5 I25.10 Office Visit 07/18/2017 8:15a [facility] Eber QuispeOSoto 83645 F03.91 D35.2 I25.10 E78.5 Office Visit 06/18/2017 8:15a [facility] Trevon Eber [place]pe[place]oto [address]0922 F03.90 I25.10 D35.2 E78.5 Office Visit 03/24/2017 9:45a [facility] Ganesh Guardado M.D. 28814 F03.91 Z91.83 E78.5 Office Visit 03/18/2017 1:11p [facility] [place], [address] G30.1 Assoc,pc Hospitalists Kenia E11.9 F02.80 I10 Office Visit 02/10/2017 3:21p [facility] [address] M79.1 Hospitalists R00.1 F03.90 Office Visit 05/15/2013 1:15p [facility] Dorothy Matos, 81920 410.71 Hospitalists N.P. 285.1 780.39 401.9 Office Visit 05/14/2013 1:15p [facility] Dorothy Matos, 43765 410.71 Hospitalists N.P. 285.1 780.39 401.9 Office Visit 05/13/2013 1:14p [facility] Samara Galvan, 32293 410.71 Hospitalists D.O. 285.1 780.39 401.9 Office Visit 05/12/2013 1:14p [facility] Samara Galvan, 01678 410.71 Hospitalists D.O. 285.1 780.39 401.9 Office Visit 05/11/2013 3:29p [facility] Sina Elias, 43869 780.2 Services Of Andreea Aquino Office Visit 05/11/2013 1:12p [facility] Samara Galvan, 22025 410.71 Hospitalists D.O. 250.00 780.39 401.9 Office Visit 05/11/2013 2:35p [facility] Delmar Borrego, 95001 410.90 Andreea Aquino 414.9 Office Visit 05/10/2013 3:28p [facility] Sina Elias M.D. [address] [facility] 414.9 Office Visit 05/10/2013 1:12p [facility] Samara Galvan, 57310 410.71 Hospitalists D.O. 250.00 345.50 401.9 Office Visit 05/10/2013 9:16a [facility] Alex Duvall, 38179 786.50 Andreea Aquino, FACC, FASNC 796.4 Office Visit 05/09/2013 1:11p [facility],cesia Altman M.D. 52782 786.50 Hospitalists 250.00 253.4 401.9 Office Visit 05/08/2013 10:53a [facility], 28405 719.41 Hospitalists D.O. 401.9 250.00 Office Visit 05/08/2013 1:59p [facility] Delmar Borrego, 18835 786.50 Andreea Aquino 786.05 Office Visit 05/07/2013 10:52a [facility] Assoc,pc Dorothy Matos, 60980 719.41 Hospitalists N.P. 786.50 401.9 250.00 Plan of Care 12/20/2017 - Maday Mcdaniel, NPK56.609 Unsp intestnl obst, unsp as to partial versus complete obstComments:ResolvedCurrently tolerating PO intake and having bowel movementsContinue to encourge suppositories,although patient is sometimes resistant to treatment secondary to dementia.Surgical follow up as [id number] Do not resuscitateComments:Family considering HospiceContinue supportive care for resident and family
[2017-12-27] MEDS ORDERED: NS 0.9% 1000 ML* 2,000 ML IV ONE (19:56)
--- NOTE | 2017-12-27 20:06 | ED ---
Abdominal Pain/Female - HPI Summary HPI Summary: This is scribe Isak Sousa documenting for attending Debbie Grossman MD. Patient is a 82 y/o F BIBA w/ c/o lower abdominal pain and fever onsetting today. Patient is level 5 caveat due to dementia and HPI is gathered from granddaughter of patient. Granddaughter states patient resides at [facility]. They called ambulance due to patient having a fever, being shaky, diarrhea and having abdominal pain. Patient was at [facility] last week for bowel obstruction. On triage, pain is denied but in the room patient notes some pain. Nothing is noted to aggravate/alleviate Sx. Home medications and allergies are reviewed. I, Dr. Grossman, personally performed the services described in this documentation as scribed in my presence and it is both accurate and complete. - History of Current Complaint Chief Complaint: EDGeneral Stated Complaint: GENERAL ILLNESS Time Seen by Provider: 12/27/17 19:10 Hx Obtained From: Family/Physician Assistant Surgery - granddaughter Hx From Patient Unobtainable Due To: Dementia - level 5 caveat Onset/Duration: Lasting Days - onset today Timing: Constant Severity Currently: Mild Location: Suprapubic Aggravating Factor(s): Nothing Alleviating Factor(s): Nothing Associated Signs and Symptoms: Positive: Fever, Diarrhea, Other: - shakiness Allergies/Adverse Reactions: Allergies Allergy/AdvReac Type Severity Reaction Status Date / Time metformin Allergy Mild Nausea And Verified 10/01/17 06:01 Vomiting propoxyphene [From Darvon] Allergy Unknown Unknown Verified 10/01/17 06:01 Reaction Details ramipril [From Altace] Allergy Unknown Unknown Verified 10/01/17 06:01 Reaction Details PMH/Surg Hx/FS Hx/Imm Hx Endocrine/Hematology History: Reports: Hx Diabetes Cardiovascular History: Reports: Hx Coronary Artery Disease - Cardiac stent 2008 , Hx Hypertension, Hx Myocardial Infarction - plavix, ASA, statin, beta fior but latter was stopped 02/01/2017, Other Cardiovascular Problems/Disorders - 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, NE Denies: Hx Angina, Hx Pacemaker/ICD Respiratory History: Denies: Hx Asthma, Hx Chronic Obstructive Pulmonary Disease (COPD), Other Respiratory Problems/Disorders GI History: Reports: Hx Diverticulosis, Other GI Disorders - constipation, hernia repair History: Reports: Other Problems/Disorders - incontinence at times, Hx of UTI Denies: Hx Renal Disease Musculoskeletal History: Reports: Hx Arthritis - Arthritis in spine, Hx Back Problems - Lumbar DDD, Lt hip OA + subchondral cyst - takes meloxicam, Other Musculoskeletal History - Osteopenia Sensory History: Reports: Hx Contacts or Glasses, Hx Hearing Problem Denies: Hx Hearing Aid Opthamlomology History: Reports: Hx Contacts or Glasses Neurological History: Reports: Hx Dementia - Alzheimer's, Hx Peripheral Neuropathy - ???, Other Neuro Impairments/Disorders - Pituitary gland adenoma, Alzheimer's Disease,Dementia Denies: Hx Seizures Psychiatric History: Reports: Hx Anxiety, Hx Depression Denies: Hx Panic Disorder - Cancer History Cancer Type, Location and Year: pituitary tumor Hx Chemotherapy: No Hx Radiation Therapy: No - Surgical History Surgery Procedure, Year, and Place: colon resection 2007,hysterectomy 40 years ago ,r/t benign tumors,hernia repair 2009 Hx Anesthesia Reactions: No - Immunization History Date of Tetanus Vaccine: unknown Date of Influenza Vaccine: 2011 Infectious Disease History: No Infectious Disease History: Denies: Traveled Outside the [place] in Last 30 Days - Family History Known Family History: Positive: Diabetes - Social History Alcohol Use: None Hx Substance Use: No Substance Use Type: Reports: None Hx Tobacco Use: No Smoking Status (MU): Never Smoked Tobacco Review of Systems Positive: Fever - [facility] reported fever, on vitals temperature is 99.7 F , Other - shakiness Positive: Abdominal Pain - lower, Diarrhea All Other Systems Reviewed And Are Negative: No - Comments Additional Review of Systems Comments: patient is level 5 caveat Physical Exam - Summary Physical Exam Summary: VITAL SIGNS: Reviewed. GENERAL: Patient is a well-developed and nourished female who is lying comfortable in the stretcher. Patient is not in any acute respiratory distress. Patient is alert and demented, able to follow commands. Level 5 caveat. HEAD AND FACE: No signs of trauma. No ecchymosis, hematomas or skull depressions. No sinus tenderness. EYES: PERRLA, EOMI x 2, No injected conjunctiva, no nystagmus. EARS: Hearing grossly intact. Ear canals and tympanic membranes are within normal limits. MOUTH: Oropharynx within normal limits. NECK: Supple, trachea is midline, no adenopathy, no JVD, no carotid bruit, no c- spine tenderness, neck with full ROM. CHEST: Symmetric, no tenderness at palpation LUNGS: Clear to auscultation bilaterally. No wheezing or crackles. CVS: Regular rate and rhythm, S1 and S2 present, no murmurs or gallops appreciated. ABDOMEN: Soft, non-tender. No signs of distention. No rebound no guarding, and no masses palpated. Bowel sounds are hyperactive. EXTREMITIES: FROM in all major joints, no edema, no cyanosis or clubbing. NEURO: Alert and oriented x 3. No acute neurological deficits. Speech is normal and follows commands. SKIN: Dry and warm Triage Information Reviewed: Yes Vital Signs On Initial Exam: Initial Vitals Temp Pulse Resp BP Pulse Ox 99.7 F 88 16 144/72 100 12/27/17 18:53 12/27/17 18:53 12/27/17 18:53 12/27/17 18:53 12/27/17 18:53 Vital Signs Reviewed: Yes Diagnostics - Vital Signs Vital Signs Temp Pulse Resp BP Pulse Ox 12/27/17 19:28 89 23 130/71 99 12/27/17 19:00 94 22 99 12/27/17 18:58 93 22 142/73 99 12/27/17 18:53 99.7 F 88 16 144/72 100 - Laboratory Result Diagrams: 12/27/17 20:45 12/27/17 20:43 Lab Statement: Any lab studies that have been ordered have been reviewed, and results considered in the medical decision making process. - Radiology CXR Xray Interpretation: No Acute Changes Radiology Interpretation Completed By: ED Physician - Poor respiratory effort, no acute process. ED physician has reviewed this imaging report, pending offical report. - CT CT abd/pel CT Interpretation: Positive (See Comments) CT Interpretation Completed By: Radiologist - Findings suggesting proctitis. Cholelithiasis. Sveral calcified gallstones. No gallbladder wall thickening or pericholecystic fluid. Stomach and bowel: Incompletely distended grossly normal stomach. Normal caliber small bowel. Subtotal colectomy the sigmoid colon with widely patent enterocolonic anastomosis. Thick walled rectum with associated meso rectal stranding and moderate volume of rectal stool. This report was reviewed by ED physician. Re-Evaluation - Re-Evaluation First Eval Re-Evaluation Time: 23:34 Comment: Patient had difficult IV access, Tried to get an external juglar, patient fighting, couldnt get IV access. Second Eval Re-Evaluation Time: 23:54 Comment: Patient and patient's granddaughter informed [facility] would [facility]. Plan to follow up with PCP in 1-2 days was discussed and agreed upon by patient and patient's granddaughter. Abdominal Pain Fem Course/Dx - Course Course Of Treatment: Patient is a 82 y/o F BIBA w/ c/o lower abdominal pain and fever onsetting today. Patient is level 5 caveat due to dementia and HPI is gathered from granddaughter of patient. Granddaughter states patient resides at [facility]. They called ambulance due to patient having a fever, being shaky, diarrhea and having abdominal pain. Patient was at [facility] last week for bowel obstruction. On triage, pain is denied but in the room patient notes some pain. Nothing is noted to aggravate/alleviate Sx. Physical exam showed hyperactive bowel sounds with no other abnormal findings. During ED course, patient was given Levofloxacin 500 mg PO ONCE, Metronidazole 500 mg PO ONCE. Labs showed WBC 15.8 H, Hgb 11.6 L, 75 L MCV, MCH 24 L, glucose 110 H, absolute neuts 14.0 H, absolute lymphs 0.8 L, CRP 22.04 H, albumin 3.1 L. Stool was collected and sent to lab. Stool was negative for SOBT, Toxigenic C. diff negative, and 027 presumptive negative. Stool specimen was brown, semi-formed, and pasty. CT abd/pel and CXR were taken with impressions above. CT abd/pel revealed proctitis. Patient's case was discussed with Dr. Castro. It was decided that the patient would be discharged back to her nursing facility with diagnosis of proctitis as labs showed no dehydration. Patient was prescribed Levofloxacin TAB* [Levaquin TAB*] 500 mg PO DAILY #7 tab, metroNIDAZOLE [Flagyl ] 500 mg PO TID #20 tablet. Patient and patient's granddaughter are agreeable with plan. All questions were answered to satisfaction. - Diagnoses Provider Diagnoses: Proctitis - Provider Notifications Discussed Care Of Patient With: Humberto Castro Time Discussed With Above Provider: 23:51 Instructed by Provider To: Other - Patient's case was discussed with Dr. Castro. Patient's bloodwork shows no dehydration, patient will be sent home with PO antibiotics. Discharge - Sign-Out/Discharge Documenting (check all that apply): Patient Departure - discharge - Discharge Plan Condition: Stable Disposition: [facility] Prescriptions: Levofloxacin TAB* [Levaquin TAB*] 500 mg PO DAILY #7 tab metroNIDAZOLE [Flagyl] 500 mg PO TID #20 tablet Patient Education Materials: Proctitis (ED) Referrals: [facility] [Outside] - 2 Days Additional Instructions: Follow up with primary care physician in 1-2 days. Return to ED for any changing or worsening symptoms.
[2017-12-27 20:54] LABS: Hematocrit 36 % (35-47); Hemoglobin 11.6 g/dl (12.0-16.0); Mean Corpuscular HGB Conc 32 g/dl (31-36); Mean Corpuscular Hemoglobin 24 pg (27-31); Mean Corpuscular Volume 75 fL (80-97); Mean Platelet Volume 8.9 um3 (7.4-10.4); Platelet Count 243 10^3/ul (150-450); Red Blood Count 4.79 10^6/ul (4.00-5.40); Red Cell Distribution Width 15 % (10.5-15); White Blood Count 15.8 10^3/ul (3.5-10.8)
[2017-12-27 21:09] LABS: INR 1.05 (0.77-1.02)
[2017-12-27 21:17] LABS: ABS Basophils 0.1 10^3/ul (0-0.2); ABS Eosinophils 0 10^3/ul (0-0.6); ABS Lymphocytes 0.8 10^3/ul (1.0-4.8); ABS Monocytes 0.8 10^3/ul (0-0.8); ABS Nucleated RBC 0 10^3/ul; Eosinophil % 0.1 % (0-6); Nucleated Red Blood Cells % 0
[2017-12-27] MEDS ORDERED: Iodixanol* (CONTRAST) 320 MG/ML 100 ML SDV IV ONE (21:31)
[2017-12-27 23:37] LABS: Urine Appearance Clear; Urine Blood Negative (Negative); Urine Color Yellow; Urine Ketones Negative (Negative); Urine Protein Negative (Negative); Urine Specific Gravity 1.019 (1.010-1.030); Urine Urobilinogen Negative (Negative)
[2017-12-27] MEDS ORDERED: metroNIDAZOLE TAB* 250 MG PO ONE (23:44)
[2017-12-27] MEDS ORDERED: Levofloxacin TAB* 500 MG PO ONE (23:45)
[2017-12-28 00:46] VITALS: BP 132/62
--- NOTE | 2017-12-28 07:25 | RAD ---
INDICATION: Fever COMPARISON: Chest x-ray April 03, 2015 TECHNIQUE: Single AP portable view of the chest was obtained. FINDINGS: Image quality is compromised due to the relative inferiority of a portable chest x-ray. The heart and mediastinum exhibit normal size and contour. The lungs are grossly clear. There is no evidence of a large pleural effusion. Visualized bones are normal for the patient's age. IMPRESSION: No radiographic evidence for acute cardiopulmonary abnormality on this portable chest x-ray. R0
--- NOTE | 2017-12-28 07:56 | RAD ---
Indication: Abdominal pain. Contrast: Administered 80.3 ml of VISAPAQUE 320 mg/ml CT of the abdomen and pelvis was performed without oral or IV contrast administration. Coronal and sagittal reconstructed images were obtained. Due to infiltration of contrast and difficulty obtaining an intravenous line the study was performed without IV contrast. Comparison is made with exam dated December 11, 2017. Lung bases demonstrate no pleural fluid, nodules or masses. Heart demonstrates no pericardial effusion. Previously identified left basilar infiltrate is no longer present. Liver is normal in size. No focal lesions or intrahepatic duct dilatation is noted. The gallbladder demonstrates calcified gallstone in the dependent portion. No pericholecystic fluid or wall thickening is noted. Common duct is not dilated. The spleen is normal in size. The pancreas demonstrates no mass or pancreatic duct dilatation. No adrenal lesions are noted. The kidneys demonstrate no focal masses. No hydronephrosis is noted. No retroperitoneal lymphadenopathy is noted. Aorta and inferior vena cava are unremarkable. No pelvic adenopathy is noted. No dilated loops of bowel are noted. There is evidence of prior surgery. No definite bowel obstruction is noted. There has been anterior abdominal wall hernia repair. There is a small residual hernia containing omentum. Previously identified small bowel dilatation is no longer present. The urinary bladder is unremarkable. Colon is partially resected and filled with stool. There is evidence of wall thickening of the rectum for which proctitis is not totally excluded. No pelvic adenopathy is identified. The bony structures are grossly unremarkable. When compared to previous exam of December 11, 2017 bowel dilatation appears to be improved. Patient has had a colon resection. No hernias are noted. IMPRESSION: Previously identified dilated loops of small bowel in the lungs present. No free fluid is identified. Mucosal thickening in the rectum for which proctitis is not excluded. Gallstones are noted.
== END 2017-12-28 00:50 ==
LOC: ED 18:51
DX: K62.89 Other specified diseases of anus and rectum (principal); K80.80 Other cholelithiasis without obstruction; R50.9 Fever, unspecified; R19.7 Diarrhea, unspecified; Z88.8 Allergy status to other drugs, medicaments and biological substances; I25.10 Atherosclerotic heart disease of native coronary artery without angina pectoris; Z95.5 Presence of coronary angioplasty implant and graft; E11.8 Type 2 diabetes mellitus with unspecified complications; K57.91 Diverticulosis of intestine, part unspecified, without perforation or abscess with bleeding; I21.9 Acute myocardial infarction, unspecified
CPT/HCPCS: 36415; 71045; 74176; 74177; 80053; 81003; 82270; 83605; 83630; 84484; 85025; 85610; 85730; 86140; 87040; 87045; 87046; 87493; 87899; 96360; 99285; A9270-GY; Q9967